=== PATIENT | female | born 1955 | race Caucasian/White ===

== ENCOUNTER → 2018-04-14 | Outpatient (CLI) | payer OTHER ==
--- NOTE | 2018-04-15 11:14 | MM ---
Reason for exam: screening (asymptomatic). Last mammogram was performed 2 years and 9 months ago. History: Patient is postmenopausal. Took hormonal contraceptives for 10 years beginning at age 30. Took estrogen for 2 years. Physical Findings: A clinical breast exam by your physician is recommended on an annual basis and results should be correlated with mammographic findings. MG 3D Screening Mammo W/Cad Bilateral CC and MLO view(s) were taken. Prior study comparison: July 23, 2015, bilateral MG screening mammo w CAD. September 07, 2011, [facility] DIGITAL LEFT BREAST MAMMOGRAM w/CAD. There are scattered fibroglandular densities. There is no discrete abnormality. ASSESSMENT: Negative, BI-RAD 1 RECOMMENDATION: Routine screening mammogram of both breasts in 1 year.
== END ==
LOC: RADMAMWWP 12:00
PROVIDERS: ATTEND Physician Assistant
DX: Z12.31 Encounter for screening mammogram for malignant neoplasm of breast (principal)
CPT/HCPCS: 77063; 77067

== ENCOUNTER → 2019-08-25 | Outpatient (CLI) | payer OTHER ==
--- NOTE | 2019-08-29 08:36 | MM ---
Reason for exam: screening (asymptomatic). Last mammogram was performed 1 year and 4 months ago. History: Patient is postmenopausal. Took hormonal contraceptives for 10 years beginning at age 30. Took estrogen for 2 years. Physical Findings: A clinical breast exam by your physician is recommended on an annual basis and results should be correlated with mammographic findings. MG 3D Screening Mammo W/Cad Bilateral CC, MLO, and XCCL view(s) were taken. Prior study comparison: April 14, 2018, bilateral MG 3d screening mammo w/cad. July 23, 2015, bilateral MG screening mammo w CAD. There are scattered fibroglandular densities. There is no discrete abnormality. ASSESSMENT: Negative, BI-RAD 1 RECOMMENDATION: Routine screening mammogram of both breasts in 1 year.
== END ==
LOC: RADMAMWWP 15:12
PROVIDERS: ATTEND Family Medicine
DX: Z12.31 Encounter for screening mammogram for malignant neoplasm of breast (principal)
CPT/HCPCS: 77063; 77067

== ENCOUNTER 2020-03-18 17:24 | Inpatient (IN) | payer OTHER ==
[2020-03-18] MEDS ORDERED: ASPIRIN 81 MG PO STA (17:34)
[2020-03-18] MEDS ORDERED: HEPARIN SODIUM,PORCINE 5,000 UNIT/ML 1 ML VIAL IV ONE (17:34)
[2020-03-18] MEDS ORDERED: HEPARIN SODIUM,PORCINE 5,000 UNIT/ML 1 ML VIAL IV PRN (17:34)
[2020-03-18] MEDS ORDERED: NALOXONE 0.4 MG/ML 1 ML VIAL IV PRN (17:39)
--- NOTE | 2020-03-18 17:39 | ED ---
General Adult HPI - General Chief complaint: Chest Pain Stated complaint: chest pain Time Seen by Provider: 03/18/20 17:29 Source: patient Mode of arrival: ambulatory Limitations: no limitations - History of Present Illness Initial comments: Dictation was produced using [employer] dictation software. please excuse any grammatical, word or spelling errors. This patient was cared for during a federal and state declared state of emergency secondary to Covid 19 Chief Complaint: 64-year-old female presents with chest pain and epigastric bang n. History of Present Illness: Patient's 64-year-old female she presents with progressing chest pain. Patient states the pain is like a very sharp pressure in her anterior chest. She also complains of nausea and diaphoresis. Patient states she has strong family history of cardiac disease. Both of her brothers have coronary artery disease requiring stents. Her dad had a heart attack at the age of 70. Patient denies any comorbidities. No history of smoking. Denies that the pain radiates to her back. The ROS documented in this emergency department record has been reviewed and confirmed by me. Those systems with pertinent positive or negative responses have been documented in the HPI. All other systems are other negative and/or noncontributory. PHYSICAL EXAM: General Impression: Alert and oriented x3, acute distress secondary to pain, diaphoretic HEENT: Normocephalic atraumatic, extra-ocular movements intact, pupils equal and reactive to light bilaterally, mucous membranes moist. Cardiovascular: Heart regular rate and rhythm Chest: Able to complete full sentences, no retractions, no tachypnea Abdomen: abdomen soft, non-tender, non-distended, no organomegaly Musculoskeletal: Pulses present and equal in all extremities, no peripheral edema Motor: no focal deficits noted Neurological: CN II-XII grossly intact, no focal motor or sensory deficits noted Skin: Intact with no visualized rashes Psych: Normal affect and mood ED course: 64-year-old female with ACS-type symptoms. Vital signs upon arrival shows oxygen saturation of 89% on room air, rest of vital signs within acceptable limits. EKG shows anterior ST segment elevation IN with reciprocal changes in the inferior leads. Code STEMI activated. Discussed patient case with Dr. Akbar. Patient will be dispositioned to the [facility] emergently for cardiac catheterization possible intervention. Patient will be admitted to Dr. Pugh about. EKG interpretation: Ventricular rate 79, normal sinus rhythm,. PRInterval 64, QRS 76, QTC 454. No MO prolongation, no QTC prolongation. ST elevations in anterior precordial leads, high lateral leads with with reciprocal changes in inferior leads. - Related Data Previous Rx's Medication Instructions Recorded predniSONE 60 mg PO DIRECTED #30 tab 11/12/14 Allergies Allergy/AdvReac Type Severity Reaction Status Date / Time No Known Allergies Allergy Verified 03/18/20 17:25 Review of Systems ROS Statement: Those systems with pertinent positive or pertinent negative responses have been documented in the HPI. ROS Other: All systems not noted in ROS Statement are negative. Past Medical History Past Medical History: No Reported History History of Any Multi-Drug Resistant Organisms: None Reported Past Surgical History: No Surgical Hx Reported, Tonsillectomy, Tubal Ligation Past Psychological History: No Psychological Hx Reported Smoking Status: Never smoker Past Alcohol Use History: None Reported Past Drug Use History: None Reported General Exam Limitations: no limitations Course Vital Signs 03/18/20 17:25 Temperature 98.1 F Pulse Rate 78 Respiratory 18 Rate Blood Pressure 152/81 O2 Sat by Pulse 89 L Oximetry Disposition Clinical Impression: STEMI (ST elevation myocardial infarction) Disposition: ADMITTED IP TO THIS HOSP Condition: Critical Referrals: Barb Langley DO [Primary Care Provider] - 1-2 days Decision Time: 17:38
[2020-03-18] MEDS: NITROGLYCERIN SL TABS 0.4 MG TAB SUBLINGUAL PRN ×2 (17:42→17:49)
[2020-03-18] MEDS ORDERED: HEPARIN SOD,PORK IN 0.45% NACL 25,000 UNIT in 0.45% NACL 1 250ML.BAG IV SCH (17:45)
[2020-03-18] MEDS ORDERED: SODIUM CHLORIDE 0.9% 1,000 ML IV SCH ×2 (17:45→19:45)
[2020-03-18] MEDS ORDERED: IV FLUID CONTINUATION 850 ML IV ONE (17:58)
[2020-03-18] MEDS ORDERED: ONDANSETRON 4 MG/2 ML VIAL ONE (18:00)
[2020-03-18] MEDS ORDERED: ONDANSETRON 4 MG/2 ML VIAL IVP ONE (18:00)
[2020-03-18] MEDS ORDERED: SODIUM CHLORIDE 0.9% 500 ML 500 ML IV ONE (18:00)
[2020-03-18 18:04] LABS: ALT 28 U/L (4-34); AST 38 U/L (14-36); African American GFR (CKD) >90 (>60 ml/min/1.73 sqM); Albumin 4.5 g/dL (3.5-5.0); Alkaline Phosphatase 105 U/L (38-126); Anion Gap 17 mmol/L; Blood Urea Nitrogen 14 mg/dL (7-17); Calcium 9.6 mg/dL (8.4-10.2); Carbon Dioxide 16 mmol/L (22-30); Chloride 104 mmol/L (98-107); Glucose 122 mg/dL (74-99); Non-African American GFR(CKD) >90 (>60 ml/min/1.73 sqM); Potassium 3.9 mmol/L (3.5-5.1); Sodium 137 mmol/L (137-145); Total Protein 8.2 g/dL (6.3-8.2)
[2020-03-18] MEDS ORDERED: VERAPAMIL 2.5 MG/ML 2 ML AMP ONE (18:08)
[2020-03-18] MEDS ORDERED: fentaNYL (PF) 50 MCG/ML 2 ML AMP ONE (18:08)
[2020-03-18] MEDS ORDERED: LIDOCAINE 1% INJ 10MG/ML (20 ML MDV) SQ ONE (18:10)
[2020-03-18] MEDS ORDERED: fentaNYL (PF) 50 MCG/ML 2 ML AMP IV ONE (18:10)
[2020-03-18 18:12] LABS: Basophils # (A) 0.1 k/uL (0-0.2); Basophils % (A) 1 %; Eosinophils # (A) 0.2 k/uL (0-0.7); Eosinophils % (A) 2 %; HCT 45.6 % (34.0-46.0); HGB 15.7 gm/dL (11.4-16.0); Lymphocytes # (A) 3.5 k/uL (1.0-4.8); Lymphocytes % (A) 34 %; MCH 31.4 pg (25.0-35.0); MCHC 34.5 g/dL (31.0-37.0); Mean Platelet Volume 7.9; Monocytes # (A) 0.7 k/uL (0-1.0); Monocytes % (A) 7 %; Neutrophils # (A) 5.3 k/uL (1.3-7.7); Neutrophils % (A) 52 %; Platelet Count 314 k/uL (150-450); RBC 5.01 m/uL (3.80-5.40); RDW 12.8 % (11.5-15.5); WBC 10.1 k/uL (3.8-10.6)
[2020-03-18] MEDS ORDERED: VERAPAMIL SYRINGE (5 MG/10 ML) INTRAARTER ONE (18:12)
[2020-03-18 18:13] LABS: INR 0.9 (<1.2); Prothrombin Time 9.7 sec (9.0-12.0)
[2020-03-18 18:14] LABS: Partial Thromboplastin Time 21.8 sec (22.0-30.0)
[2020-03-18] MEDS ORDERED: TICAGRELOR 90 MG TAB ONE (18:17)
[2020-03-18] MEDS ORDERED: TICAGRELOR 90 MG TAB PO ONE (18:19)
[2020-03-18] MEDS ORDERED: BIVALIRUDIN BOLUS 250 MG/50 ML IV ONE (18:20)
[2020-03-18] MEDS ORDERED: BIVALIRUDIN 250 MG in SODIUM CHLORIDE 0.9% 50 ML IV ONE ×2 (18:20→19:10)
--- NOTE | 2020-03-18 18:32 | XR ---
EXAMINATION TYPE: XR chest 1V portable DATE OF EXAM: 03/18/2020 COMPARISON: 11/12/2014 HISTORY: Chest pain TECHNIQUE: FINDINGS: There is no heart failure nor confluent pneumonic infiltrate. Heart and mediastinum appear normal. There is no sign of pleural effusion. Bony thorax is intact. IMPRESSION: No active cardiopulmonary disease. No change.
[2020-03-18] MEDS ORDERED: IOPAMIDOL-370 125ML BTL INJ ONE (18:33)
[2020-03-18] MEDS ORDERED: IOPAMIDOL-370 100ML BTL INJ ONE ×2 (18:55→19:13)
[2020-03-18] MEDS ORDERED: NITROGLYCERIN 1000MCG/10ML SYRINGE INTRACORON ONE (19:09)
[2020-03-18] MEDS ORDERED: MIDAZOLAM 2 MG/2 ML VIAL IV ONE (19:10)
[2020-03-18] MEDS ORDERED: ZOLPIDEM 5 MG TAB PO PRN (19:36)
[2020-03-18] MEDS ORDERED: RX INFO: IV CONTRAST WAS GIVEN 1 EACH MISC MISCELLANE PRN (19:36)
[2020-03-18] MEDS ORDERED: MAG HYDROX/AL HYDROX/SIMETH 30 ML CUP PO PRN (19:36)
[2020-03-18] MEDS ORDERED: NITROGLYCERIN SL TABS 0.4 MG TAB SUBLINGUAL PRN (19:36)
[2020-03-18] MEDS ORDERED: ATROPINE SULFATE 0.1 MG/ML 10ML SYRINGE IV PRN (19:36)
[2020-03-18 19:41] LABS: Glucose,Whole Blood 123 mg/dL (75-99)
[2020-03-18 20:38] LABS: Glucose,Whole Blood 121 mg/dL (75-99)
[2020-03-18] MEDS: METOPROLOL TARTRATE 25 MG TAB PO SCH (22:17)
[2020-03-18] MEDS: ATORVASTATIN 80 MG TAB PO SCH (22:17)
[2020-03-18] MEDS: TICAGRELOR 90 MG TAB PO SCH (22:19)
--- NOTE | 2020-03-18 23:20 | CONS ---
CONSULTATION Mrs. Champagne is a 64-year-old female with no prior documented history of coronary artery disease, family history of premature coronary artery disease, who presented with an episode of chest discomfort that occurred at rest, associated with dizziness. In the emergency room, she was noted to have ST-segment elevation involving I, aVL and the anterior leads with ST depression in the inferior leads consistent with anterior wall myocardial infarction. The patient denies any prior history of coronary artery disease. She is active physically. She has no exertional chest pain. No dizziness. No palpitation. No syncope on a regular basis. No PND, orthopnea or peripheral edema. Her coronary risk factors are negative for hypertension or diabetes. She is a nonsmoker and there is a family history of premature coronary artery disease. MEDICATIONS: None. REVIEW OF SYSTEMS: RESPIRATORY SYSTEM: No recent cough, fever or wheezing. GI SYSTEM: No recent GI bleeding. No peptic ulcer disease. SYSTEM: No dysuria or hematuria. NERVOUS SYSTEM: No stroke or seizure. PHYSICAL EXAMINATION: -jrlm-dln female, alert, nauseated. Vomiting in the cardiac catheterization lab. Heart rate in the 70s. HEAD: Normocephalic. Eyes: Sclerae anicteric. NECK: Good carotid upstroke. No bruit. No jugular venous distention. LUNGS: Clear to auscultation anteriorly. HEART: Regular rate, rhythm S1, S2. No S3, plus S4, no rub. ABDOMEN: Soft, obese, nontender. Positive bowel sounds. No organomegaly. EXTREMITIES: No edema. Intact distal pulses. EKG reveals sinus mechanism, rate of 79, with evidence of anterolateral myocardial infarction. IMPRESSION: Acute anterior wall myocardial infarction. RECOMMENDATION: I have recommended proceeding with coronary angiography to assess her status and guide her treatment. The rationale behind the procedure, its risks and complication were discussed with the patient, who is in full understanding and agreement. Thank you for this consult. Will follow with you. MMODL / IJN: [id number] /
--- NOTE | 2020-03-19 01:04 | CC ---
CARDIAC CATHETERIZATION REPORT Mrs. Champagne is a 64-year-old female with strong family history of premature coronary artery disease who presented with symptoms of chest discomfort of acute onset with evidence of large anterior wall myocardial infarction. In view of that, recommendation was made regarding cardiac catheterization. The procedure as well as the risks and the complications were discussed with the patient who is in full understanding and agreement. PROCEDURE: Patient was brought to excavation laborer. She was draped and prepped in conventional fashion. Using Xylocaine anesthesia and Seldinger technique, a 6-[place] sheath was introduced in the right radial artery. Selective right and left coronary angiography performed using 6-[place] FR3.5 guiding catheter. After obtaining images of the left coronary system and performing angioplasty and stenting, a 5-[place] 3.5 bend right Anabel catheter was used to cannulate the right coronary artery. Images of the right coronary artery were performed. Following that, attempt to cross the aortic valve using a 5-[place] tight pigtail catheter were unsuccessful. Subsequently catheter and sheath were removed. Hemostasis was obtained with deployment of TR band. There was no immediate complication. Patient was returned to room in stable condition. FINDINGS: LEFT MAIN: This is a short size vessel bifurcating left circumflex, left anterior descending artery. Left main artery has no evidence of high-grade stenosis. LEFT ANTERIOR DESCENDING ARTERY: This vessel is totally occluded proximally at the takeoff of the first septal shoe polisher. There is retrograde filling of the LAD. LEFT CIRCUMFLEX: This is a large dominant vessel bifurcating distally PDA and posterolateral segment and branches giving rise to a large obtuse marginal branch. The left circumflex has mild plaque of 10%. The rest of the vessel has no high-grade stenosis. RIGHT CORONARY ARTERY: This is a small nondominant vessel giving rise to an acute marginal branch. The right coronary artery as well as branches have no evidence of obstructive coronary artery disease. LEFT VENTRICULOGRAM: Left ventriculogram was not performed. CONCLUSION: 1. Heavily calcified proximal left anterior descending artery with total occlusion. 2. Mild disease in the left circumflex. 3. Dominant left system. RECOMMENDATION: In view of finding anatomy, I recommend proceeding with angioplasty and stenting of the LAD. The procedure as well as the risks and the complications were discussed with the patient who is in full understanding and agreement. MMODL / IJN: [id number] /
--- NOTE | 2020-03-19 01:13 | PTCA ---
PERCUTANEOUSTRANS CORORONARY ANGIOGRAPHY Mrs. Champagne is a 64-year-old female with a strong family history of premature coronary artery disease who presents with an acute anterior myocardial infarction, underwent cardiac catheterization, was found to have totally occluded left anterior descending artery proximal. In view of that, recommendation was made regarding coronary angioplasty and stenting. The procedures as well as risks and the complications were discussed with the patient who is in full understanding and agreement. PROCEDURE: A 0.014 balanced medium weight J-wire was advanced across the lesion positioned distally. Subsequently, 2.5 x 12 mm Trek balloon was advanced and multiple inflations at 10 atmospheres were done. Following that, the balloon was removed and a 2.75 x 12 mm Trek balloon was advanced and multiple inflations were done. There was an area that was heavily calcified that did not open completely at that time. A 2.5 x 10 AngioSculpt balloon was advanced and one inflation 8 atmospheres was done. Following that, the balloon was removed and a 2.75 x 15 mm NC Trek balloon was advanced and inflation at 10 atmospheres was done. The lesion opened up, but not completely. At that point, a 3.0 x 23 mm Xience Lavonne stent was deployed postdilated at 16 atmospheres. Following that, the balloon was removed and a 3.0 x 15 mm NC Trek balloon was advanced and inflation up to 16 atmospheres was done. With inability to totally open up the lesion that balloon was removed and a 3.5 x 15 mm NC Trek balloon was advanced and at a pressure of 20 atmospheres, the lesion opened up completely. At that point the balloon was removed and a 2.75 x 12 mm Xience Lavonne stent was deployed distal to the first one and postdilated at 16 atmospheres. Following that, the balloon was removed and a 3.5 x 12 mm Xience Lavonne stent was deployed proximal to the first one postdilated to 16 atmospheres. Following that, a 3.75 x 15 mm NC Emerge balloon was advanced and inflation in the stented segment was done at 14 atmospheres. After the last inflation, after appropriate wait, the balloon and the guidewire were withdrawn back in the guiding catheter. Images were obtained, repeated. Those images reveal stable successful stenting. At that point, the guiding catheter, the balloon and the guidewire were removed. Images of the right coronary artery were performed. Following that, catheter and sheath were removed. Hemostasis was obtained with deployment of a TR band. There was no immediate complication. Patient was returned to room in stable condition. Of note, the patient received Angiomax per protocol as well as oral loading dose of Brilinta. RESULTS: Successful stenting of a heavily calcified totally occluded proximal LAD with reduction of stenosis from 100% to 0%. RECOMMENDATION: Patient will be continued on aspirin, Brilinta, beta blockers, JATIN inhibitor and statin. The importance of dual antiplatelet treatment were discussed with the patient and her family and they are in full understanding and agreement. Duration of procedure is 69 minutes. MMODL / IJN: [id number] /
[2020-03-19 05:25] LABS: African American GFR (CKD) >90 (>60 ml/min/1.73 sqM); Anion Gap 8 mmol/L; Blood Urea Nitrogen 12 mg/dL (7-17); Calcium 8.5 mg/dL (8.4-10.2); Carbon Dioxide 21 mmol/L (22-30); Chloride 107 mmol/L (98-107); Cholesterol 204 mg/dL (<200); Glucose 127 mg/dL (74-99); HDL Cholesterol 38 mg/dL (40-60); LDL Cholesterol,Calculated 144 mg/dL (0-99); Non-African American GFR(CKD) >90 (>60 ml/min/1.73 sqM); Potassium 4.6 mmol/L (3.5-5.1); Sodium 136 mmol/L (137-145); Triglycerides 109 mg/dL (<150)
[2020-03-19] MEDS: SPIRONOLACTONE 25 MG TAB PO SCH (09:36)
[2020-03-19] MEDS: LISINOPRIL 5 MG TAB PO SCH (09:37)
[2020-03-19] MEDS: TICAGRELOR 90 MG TAB PO SCH (09:37)
[2020-03-19] MEDS: METOPROLOL TARTRATE 25 MG TAB PO SCH ×2 (09:37→20:25)
[2020-03-19] MEDS: ASPIRIN 81 MG PO SCH (09:37)
[2020-03-19 11:04] VITALS: BMI 41.3
--- NOTE | 2020-03-19 11:59 | PN ---
PROGRESS NOTE Rianna is a 64-year-old lady who is admitted to hospital with acute anterolateral myocardial infarction. Underwent emergent cardiac catheterization and angioplasty of a totally occluded LAD. There was mild disease on the circumflex coronary artery. This morning patient is doing well and denies any chest pain or difficulty in breathing. On exam, comfortable at rest. Vital signs are stable. There is no jugular venous distention. Chest exam reveals good air entry bilaterally. Heart exam reveals first and second heart sounds. No gallop. No murmur. Abdomen is soft. Exam of extremities did not reveal any edema. Peripheral pulses are felt. Patient is currently on aspirin, Lipitor 80 daily, Zestril 5 daily, Lopressor 25 b.i.d., Aldactone, Brilinta. ASSESSMENT: Acute anterior wall myocardial infarction status post catheterization and angioplasty. PLAN: Patient is doing well. We will obtain an echocardiogram to evaluate the LV function. She can be transferred out of ICU. BETTINA / AYLIN: [id number] /
[2020-03-19] MEDS: ATORVASTATIN 80 MG TAB PO SCH (20:25)
--- NOTE | 2020-03-19 23:13 | P.HPIM ---
History of Present Illness H&P Date: 03/19/20 Chief Complaint: chest pain Rianna Champagne is a 64 yo F with no PMH but with strong family history of CAD who presented to the ED complaining of acute onset chest pain. She states she was resting in a chair when she felt like a knife was going through her chest. She also had some shortness of breath at that time. On arrival she was hypertensive with SpO2 89%, EKG showed STEMI and pt was taken to the dental laboratory technician apprentice. She was found to have 100% blockage of LAD which was stented successfully. She was transferred to ICU, today reports almost complete resolution of her chest pain and is feeling a bit sore, tolerating cardiac meds. Review of Systems All systems: negative Constitutional: Denies chills, Denies fever Eyes: denies blurred vision, denies pain Ears, nose, mouth and throat: Denies headache, Denies sore throat Cardiovascular: Reports chest pain, Reports shortness of breath Respiratory: Denies cough Gastrointestinal: Denies abdominal pain, Denies diarrhea, Denies nausea, Denies vomiting Genitourinary: Denies dysuria, Denies hematuria Musculoskeletal: Denies myalgias Integumentary: Denies pruritus, Denies rash Neurological: Denies numbness, Denies weakness Psychiatric: Denies anxiety, Denies depression Endocrine: Denies fatigue, Denies weight change Past Medical History Past Medical History: No Reported History History of Any Multi-Drug Resistant Organisms: None Reported Past Surgical History: Section, Tonsillectomy, Tubal Ligation Past Anesthesia/Blood Transfusion Reactions: No Reported Reaction Past Psychological History: No Psychological Hx Reported Smoking Status: Never smoker Past Alcohol Use History: None Reported Past Drug Use History: None Reported - Past Family History Father Family Medical History: Coronary Artery Disease (CAD), Myocardial Infarction ([place]) Additional Family Medical History / Comment(s): Father from [place] at age 52 Mother Family Medical History: Cancer Additional Family Medical History / Comment(s): Mother passed from cancer at age 65 Medications and Allergies Home Medications Medication Instructions Recorded Confirmed Type No Known Home Medications 03/18/20 03/18/20 History Allergies Allergy/AdvReac Type Severity Reaction Status Date / Time No Known Allergies Allergy Verified 03/18/20 21:23 Physical Exam Vitals: Vital Signs Temp Pulse Pulse Resp BP BP Pulse Ox 03/19/20 20:09 98.8 F 84 18 118/66 98 03/19/20 17:00 73 26 H 138/72 94 L 03/19/20 16:00 98 F 76 15 127/84 03/19/20 15:00 75 19 125/87 03/19/20 14:00 77 28 H 122/72 03/19/20 13:00 72 12 121/73 03/19/20 12:00 68 11 L 124/78 03/19/20 11:00 75 8 L 96 03/19/20 10:00 82 13 143/84 03/19/20 09:00 78 18 132/87 94 L 03/19/20 08:00 97.7 F 76 24 113/78 94 L 03/19/20 07:00 77 16 136/82 03/19/20 06:00 76 30 H 132/79 96 03/19/20 05:00 76 25 H 141/82 97 03/19/20 04:00 98.1 F 79 14 144/85 96 03/19/20 03:00 80 10 L 144/87 97 03/19/20 02:00 85 11 L 145/81 97 03/19/20 01:30 80 27 H 146/82 97 03/19/20 01:00 80 28 H 136/80 96 03/19/20 00:30 83 35 H 146/87 86 L 03/19/20 00:00 98.0 F 86 15 154/82 98 03/18/20 23:30 82 7 L 145/91 Intake and Output 03/19/20 03/19/20 03/20/20 14:59 22:59 06:59 Intake Total 120 600 Output Total 1400 Balance -1280 600 Intake: IV 120 0 .9NS 120 0 Oral 600 Output: Urine 1400 Other: Voiding Method Bedside Commode Toilet # Voids 1 1 # Bowel Movements 1 1 Weight 105.8 kg General: well nourished, well developed, NAD. Vitals reviewed Eyes: PERRL, EOMI, conjunctiva normal HENT: normocephalic, mucus membranes moist Neck: supple, no JVD Lungs: normal respiratory effort, no wheezes or rales CV: Regular rate and rhythm, no murmur. Peripheral pulses 2+ Abdomen: soft, nondistended, no organomegaly Lymph: no cervical or axillary LAD Skin: warm and dry. Neuro: A&Ox3, normal mood and affect Results CBC & Chem 7: 03/18/20 17:44 03/19/20 04:51 Labs: Abnormal Lab Results - Last 24 Hours (Table) 03/18/20 03/19/20 03/19/20 Range/Units 23:55 04:51 04:51 Sodium 136 L (137-145) mmol/L Carbon Dioxide 21 L (22-30) mmol/L Glucose 127 H (74-99) mg/dL Troponin I 103.000 H* 105.000 H* (0.000-0.034) ng/mL Cholesterol 204 H (<200) mg/dL LDL Cholesterol, Calc 144 H (0-99) mg/dL HDL Cholesterol 38 L (40-60) mg/dL Thrombosis Risk Factor Assmnt - Choose All That Apply Each Factor Represents 1 point: Acute [place], Obesity (BMI >25) Each Risk Factor Represents 2 Points: Age 61-74 years Thrombosis Risk Factor Assessment Total Risk Factor Score: 4 Thrombosis Risk Factor Assessment Level: Moderate Risk Assessment and Plan (1) STEMI (ST elevation myocardial infarction) Current Visit: Yes Status: Acute Code(s): I21.3 - ST ELEVATION (STEMI) MYOCARDIAL INFARCTION OF [facility] SITE SNOMED Code(s): 99876165 Plan: 1. Acute coronary syndrome. Now s/p successful stenting and pt doing well. Pt started on lipitor, ASA, plavix, lopressor, aldactone 2. CAD 3. HTN. Start lisinopril
[2020-03-20] MEDS: SPIRONOLACTONE 25 MG TAB PO SCH (08:29)
[2020-03-20] MEDS: ASPIRIN 81 MG PO SCH (08:29)
[2020-03-20] MEDS: METOPROLOL TARTRATE 25 MG TAB PO SCH (08:29)
[2020-03-20] MEDS: LISINOPRIL 5 MG TAB PO SCH (08:29)
[2020-03-20] MEDS: CLOPIDOGREL 75 MG TAB PO SCH (08:29)
[2020-03-20] MEDS: METOPROLOL TARTRATE 50 MG TAB PO SCH ×2 (10:49→21:00)
--- NOTE | 2020-03-20 11:43 | P.PN ---
Subjective Progress Note Date: 03/20/20 This is a pleasant 64-year-old female who presented to the hospital with an acute anterior wall myocardial infarction, she underwent antiplastic and stenting of the LAD. She was seen and examined on the cardiac unit this morning, doing well, denies any chest pain or difficulty in breathing. Blood pressure 112/60 with a heart rate 80-90, afebrile. No lab data from this morning. Echocardiogram with Doppler study has been performed but is yet pending. Objective - Vital Signs Vital signs: Vital Signs Temp 98.5 F 03/20/20 08:29 Pulse 95 03/20/20 08:29 Resp 18 03/20/20 08:29 BP 112/68 03/20/20 08:29 Pulse Ox 99 03/20/20 08:29 Intake & Output 03/19/20 03/20/20 03/20/20 18:59 06:59 18:59 Intake Total 720 240 Output Total 1400 Balance -680 240 Weight 105.8 kg 96.6 kg Intake: IV 120 .9NS 120 Oral 600 240 Output: Urine 1400 Other: Voiding Method Bedside Commode Toilet Toilet # Voids 1 1 # Bowel Movements 1 - Exam PHYSICAL EXAMINATION: GENERAL: 64-year-old female in no acute distress at the time of my examination HEENT: Head is atraumatic, normocephalic. Pupils equal, round. Sclera anicteric. Conjunctiva are clear. Mucous membranes of the mouth are moist. Neck is supple. There is no elevated jugular venous pressure. No carotid bruit is heard. HEART EXAMINATION: Heart S1, S2 normal. No murmur or gallop heard. CHEST EXAMINATION: Lungs are clear to auscultation and precussion. No chest wall tenderness is noted on palpation or with deep breathing. ABDOMEN: Soft, nontender. Bowel sounds are heard. No organomegaly noted. EXTREMITIES: 2+ peripheral pulses with no evidence of peripheral edema and no calf tenderness noted. Right radial site clean and dry, good distal pulse. NEUROLOGIC patient is awake, alert and oriented 3 . . - Labs CBC & Chem 7: 03/18/20 17:44 03/19/20 04:51 Assessment and Plan Plan: Assessment and plan #[address] elevation IN status post angioplasty and stenting of the LAD #2 family history of premature coronary artery disease #3 hyperlipidemia Plan We will review the echocardiogram with Doppler study, continue current medicati ons including dual antiplatelet therapy. Plan for possible discharge home in 24 hours if stable. DNP note has been reviewed, I agree with a documented findings and plan of care. Patient was seen and examined.
--- NOTE | 2020-03-20 14:10 | P.PN ---
Subjective Progress Note Date: 03/20/20 Rianna Champagne is a 64 yo F with no PMH but with strong family history of CAD who presented to the ED complaining of acute onset chest pain. She states she was resting in a chair when she felt like a knife was going through her chest. She also had some shortness of breath at that time. On arrival she was hypertensive with SpO2 89%, EKG showed STEMI and pt was taken to the [facility] programmer. She was found to have 100% blockage of LAD which was stented successfully. She was transferred to ICU, today reports almost complete resolution of her chest pain and is feeling a bit sore, tolerating cardiac meds. 03/20/2020 significant clinical improvement. Ambulating in the room, tolerating exertion well. Denies chest pain, palpitations or shortness of breath. Denies lightheadedness, dizziness or focal deficits.VSS. Objective - Vital Signs Vital signs: Vital Signs Temp 98.5 F 03/20/20 08:29 Pulse 95 03/20/20 08:29 Resp 18 03/20/20 08:29 BP 112/68 03/20/20 08:29 Pulse Ox 99 03/20/20 08:29 Intake & Output 03/19/20 03/20/20 03/20/20 18:59 06:59 18:59 Intake Total 720 240 Output Total 1400 Balance -680 240 Weight 105.8 kg 96.6 kg Intake: IV 120 .9NS 120 Oral 600 240 Output: Urine 1400 Other: Voiding Method Bedside Commode Toilet Toilet # Voids 1 1 # Bowel Movements 1 - Exam General: Sitting up in bed, NAD. Vitals reviewed Eyes: PERRL, EOMI, conjunctiva normal HENT: normocephalic, mucus membranes moist Neck: supple, no JVD Lungs: normal respiratory effort, no wheezes or rales CV: Regular rate and rhythm, no murmur. Peripheral pulses 2+ Abdomen: soft, nondistended, no organomegaly Lymph: no cervical or axillary LAD Skin: warm and dry. Neuro: A&Ox3, normal mood and affect - Labs CBC & Chem 7: 03/18/20 17:44 03/19/20 04:51 Assessment and Plan Assessment: (1) STEMI (ST elevation myocardial infarction), anterior wall Current Visit: Yes Status: Acute Code(s): I21.3 - ST ELEVATION (STEMI) MYOCARDIAL INFARCTION OF [facility] SITE SNOMED Code(s): 45958341 (2) CAD (3) hypertension (4) hyperlipidemia Plan: Continue on current medication regime ,monitoring and symptomatic treatment. Follow-up echo pending. Increase ambulation as tolerated. Discharge planning in progress for tomorrow pending cardiology clearance. The impression and plan of care has been dictated as directed. : I performed a history and examination of this patient, discussed the same with the dictator. I agree with the dictator's note ,documented as a scribe. Any additional findings or plans will be noted.
[2020-03-20] MEDS: ATORVASTATIN 80 MG TAB PO SCH (21:00)
[2020-03-21 06:05] VITALS: PULSE 80
--- NOTE | 2020-03-21 08:28 | ECHOF ---
Referral Reason:mi MEASUREMENTS -------- HEIGHT: 160.0 cm WEIGHT: 105.7 kg BP: RVIDd: 1.7 cm (< 3.3) IVSd: 1.2 cm (0.6 - 1.1) LVIDd: 4.6 cm (3.9 - 5.3) LVPWd: 1.2 cm (0.6 - 1.1) IVSs: 1.5 cm LVIDs: 3.1 cm LVPWs: 1.5 cm Ao Diam: 3.0 cm (2.0 - 3.7) AV Cusp: 2.1 cm (1.5 - 2.6) LA Diam: 3.1 cm (2.7 - 3.8) MV EXCURSION: 15.271 mm (> 18.000) MV EF SLOPE: 69 mm/s (70 - 150) EPSS: 0.9 cm MV E Edvin: 0.90 m/s MV DecT: 200 ms MV A Edvin: 0.89 m/s MV E/A Ratio: 1.01 RAP: 5.00 mmHg RVSP: 10.90 mmHg FINDINGS -------- Sinus rhythm. This was a technically difficult study with suboptimal views. The left ventricular size is normal. There is mild concentric left ventricular hypertrophy. Overa ll left ventricular systolic function is moderately impaired with, an EF between 35 - 40 %. Mid ant erior LV wall motion is hypokinetic. Mid anteroseptal LV wall motion is hypokinetic. Apical sep ellen LV wall motion is hypokinetic. The right ventricle is normal in size. The left atrial size is normal. The right atrial size is normal. 5.0mg of Lumason was utilized for enhancement of images IAS not well Visualized. The aortic valve is trileaflet and appears structurally normal. The mitral valve is normal. There is trace mitral regurgitation. The tricuspid valve appears structurally normal. Trace tricuspid regurgitation present. Right araseli tricular systolic pressure is normal at < 35 mmHg. There is no pulmonic regurgitation present. The aortic root size is normal. Normal inferior vena cava with normal inspiratory collapse consistent with estimated right atrial pre ssure of 5 mmHg. There is no pericardial effusion. CONCLUSIONS -------- 1. Sinus rhythm. 2. This was a technically difficult study with suboptimal views. 3. The left ventricular size is normal. 4. There is mild concentric left ventricular hypertrophy. 5. Overall left ventricular systolic function is moderately impaired with, an EF between 35 - 40 %. 6. Mid anterior LV wall motion is hypokinetic. 7. Mid anteroseptal LV wall motion is hypokinetic. 8. Apical septum LV wall motion is hypokinetic. 9. The right ventricle is normal in size. 10. The left atrial size is normal. 11. The right atrial size is normal. 12. 5.0mg of Lumason was utilized for enhancement of images 13. IAS not well Visualized. 14. The aortic valve is trileaflet and appears structurally normal. 15. The mitral valve is normal. 16. There is trace mitral regurgitation. 17. The tricuspid valve appears structurally normal. 18. Trace tricuspid regurgitation present. 19. Right ventricular systolic pressure is normal at < 35 mmHg. 20. There is no pulmonic regurgitation present. 21. The aortic root size is normal. 22. Normal inferior vena cava with normal inspiratory collapse consistent with estimated right atrial pressure of 5 mmHg. 23. There is no pericardial effusion. DEPUTY CONTROLLER: Adrianna Perdomo RDCS
[2020-03-21 09:55] VITALS: BP 107/62; RESP 17; TEMP 98.3
--- NOTE | 2020-03-21 09:59 | P.PN ---
Subjective Progress Note Date: 03/21/20 This is a pleasant 64-year-old female who presented to the hospital with an acute anterior wall myocardial infarction, she underwent antiplastic and stenting of the LAD. She was seen and examined on the cardiac unit this morning, doing well, denies any chest pain or difficulty in breathing. Blood pressure 112/60 with a heart rate 80-90, afebrile. No lab data from this morning. Echocardiogram with Doppler study has been performed but is yet pending. 03/21/2020 Patient seen and examined this morning, denies any chest pain or difficulty in breathing. She's been up ambulating without any difficulty. Echocardiogram with Doppler study was performed which revealed an ejection fraction of 35-40%, mid anterior and mid anterior septal wall as well as apical septal wall hypokinesia noted. Blood pressure 108/60 with a heart rate in the 80s, 97% on room air. Objective - Vital Signs Vital signs: Vital Signs Temp 98.3 F 03/21/20 09:55 Pulse 80 03/21/20 09:55 Resp 17 03/21/20 09:55 BP 107/62 03/21/20 09:55 Pulse Ox 88 L 03/21/20 09:55 Intake & Output 03/20/20 03/21/20 03/21/20 18:59 06:59 18:59 Intake Total 720 240 Balance 720 240 Weight 96.7 kg Intake: Oral 720 240 Other: Voiding Method Toilet Toilet # Voids 2 1 - Exam PHYSICAL EXAMINATION: GENERAL: 64-year-old female in no acute distress at the time of my examination HEENT: Head is atraumatic, normocephalic. Pupils equal, round. Sclera anicteric. Conjunctiva are clear. Mucous membranes of the mouth are moist. Neck is supple. There is no elevated jugular venous pressure. No carotid bruit is heard. HEART EXAMINATION: Heart S1, S2 normal. No murmur or gallop heard. CHEST EXAMINATION: Lungs are clear to auscultation and precussion. No chest wall tenderness is noted on palpation or with deep breathing. ABDOMEN: Soft, nontender. Bowel sounds are heard. No organomegaly noted. EXTREMITIES: 2+ peripheral pulses with no evidence of peripheral edema and no calf tenderness noted. Right radial site clean and dry, good distal pulse. NEUROLOGIC patient is awake, alert and oriented 3 . . - Labs CBC & Chem 7: 03/18/20 17:44 03/19/20 04:51 Assessment and Plan Plan: Assessment and plan #[address] elevation AL status post angioplasty and stenting of the LAD #2 family history of premature coronary artery disease #3 hyperlipidemia Plan Echocardiogram with Doppler study revealed an ejection fraction of 35-40%. From cardiology's perspective, patient may be able to be discharged home today. We will make her a follow-up appointment in the office to see Dr. Akbar post discharge. Discharge medications include a baby aspirin daily, Lipitor 80 mg daily, Plavix 75 mg daily, Zestril 5 mg daily, metoprolol 50 mg one tablet by mouth twice a day, Aldactone 25 mg daily and sublingual nitroglycerin as needed for chest pain. DNP note has been reviewed, I agree with a documented findings and plan of care. Patient was seen and examined.
[2020-03-21] MEDS: SPIRONOLACTONE 25 MG TAB PO SCH (10:02)
[2020-03-21] MEDS: ASPIRIN 81 MG PO SCH (10:02)
[2020-03-21] MEDS: LISINOPRIL 5 MG TAB PO SCH (10:02)
[2020-03-21] MEDS: METOPROLOL TARTRATE 50 MG TAB PO SCH (10:02)
[2020-03-21] MEDS: CLOPIDOGREL 75 MG TAB PO SCH (10:02)
--- NOTE | 2020-03-21 11:37 | P.DS ---
Providers Date of admission: 03/18/20 17:39 Expected date of discharge: 03/21/20 Attending physician: Jimmie Cisneros MD Consults: 03/18/20 17:34 Consult Physician Stat Consulting Provider: Tavo Wright Consult Reason/Comments: STEMI ACTIVATION COMPLETE Do you want consulting provider notified?: Yes 03/18/20 19:36 Consult Physician Routine Consulting Provider: Tavo Wright Consult Reason/Comments: Post Interventional patient Do you want consulting provider notified?: Already Contacted Primary care physician: Barb Langley Hospital Course: Final Diagnoses: (1) STEMI (ST elevation myocardial infarction), anterior wall, EF 35-40% Current Visit: Yes Status: Acute Code(s): I21.3 - ST ELEVATION (STEMI) MYOCARDIAL INFARCTION OF [facility] SITE SNOMED Code(s): 68680045 (2) CAD (3) hypertension (4) hyperlipidemia Hospital course:Rianna Champagne is a 64 yo F with no PMH but with strong family history of CAD who presented to the ED complaining of acute onset chest pain. She states she was resting in a chair when she felt like a knife was going through her chest. She also had some shortness of breath at that time. On arrival she was hypertensive with SpO2 89%, EKG showed STEMI and pt was taken to the [facility] lab[facility]. She was found to have 100% blockage of LAD which was stented successfully. She was transferred to ICU, today reports almost complete resolution of her chest pain and is feeling a bit sore, tolerating cardiac meds. 03/20/2020 significant clinical improvement. Ambulating in the room, tolerating exertion well. Denies chest pain, palpitations or shortness of breath. Denies lightheadedness, dizziness or focal deficits.VSS. Echo reported moderately impaired LV function, EF 35-40%, Significant clinical improvement. Cleared by cardiology for discharge. Patient will be discharged home in a stable condition with guarded prognosis. The impression and plan of care has been dictated as directed. : I performed a history and examination of this patient, discussed the same with the dictator. I agree with the dictator's note ,documented as a scribe. Any additional findings or plans will be noted. Patient Condition at Discharge: Stable Plan - Discharge Summary New Discharge Prescriptions: New Nitroglycerin Sl Tabs [Nitrostat] 0.4 mg SUBLINGUAL Q5M PRN #100 tab PRN Reason: Chest Pain Spironolactone [Aldactone] 25 mg PO DAILY #30 tab Aspirin 81 mg PO DAILY #30 chew Atorvastatin [Lipitor] 80 mg PO HS #30 tab Metoprolol Tartrate [Lopressor] 50 mg PO BID #60 tab Clopidogrel [Plavix] 75 mg PO DAILY #30 tab Lisinopril [Zestril] 5 mg PO DAILY #30 tab Discharge Medication List Aspirin 81 mg PO DAILY #30 chew 03/21/20 [Rx] Atorvastatin [Lipitor] 80 mg PO HS #30 tab 03/21/20 [Rx] Clopidogrel [Plavix] 75 mg PO DAILY #30 tab 03/21/20 [Rx] Lisinopril [Zestril] 5 mg PO DAILY #30 tab 03/21/20 [Rx] Metoprolol Tartrate [Lopressor] 50 mg PO BID #60 tab 03/21/20 [Rx] Nitroglycerin Sl Tabs [Nitrostat] 0.4 mg SUBLINGUAL Q5M PRN #100 tab 03/21/20 [Rx] Spironolactone [Aldactone] 25 mg PO DAILY #30 tab 03/21/20 [Rx] Follow up Appointment(s)/Referral(s): Julio Akbar MD [STAFF PHYSICIAN] - 1 Week (Office will call with appointment. ) Jimmie Cisneros MD [STAFF PHYSICIAN] - 03/25/20 4:15 pm ([facility] ) Ambulatory/Diagnostic Orders: Complete Blood Count w/diff [LAB.AMB] Time Frame: 3 Days, Location: None Selected Patient Instructions/Handouts: *Surgery [facility] - After Heart Catheterization - Paving Stone Installer Instructions, Heart Attack (DC), Heart Healthy Diet (ED) Activity/Diet/Wound Care/Special Instructions: .
== END 2020-03-21 13:12 | disposition home or self-care (01) | DRG 247 ==
LOC: EC 17:24 → 2SICU 17:39 → 3SCARD 03-19 17:53
PROVIDERS: ADMIT Family Medicine; ATTEND Family Medicine
PROC: B2111ZZ Fluoroscopy of Multiple Coronary Arteries using Low Osmolar Contrast (ICD-10-PCS; 2020-03-18)
PROC: 027036Z Dilation of Coronary Artery, One Artery with Three Drug-eluting Intraluminal Devices, Percutaneous Approach (ICD-10-PCS; principal; 2020-03-18 17:44)
PROC: 4A023N7 Measurement of Cardiac Sampling and Pressure, Left Heart, Percutaneous Approach (ICD-10-PCS; 2020-03-18 17:44)
DX: I21.09 ST elevation (STEMI) myocardial infarction involving other coronary artery of anterior wall (principal); Z11.59 Encounter for screening for other viral diseases; E66.9 Obesity, unspecified; I10 Essential (primary) hypertension; I25.10 Atherosclerotic heart disease of native coronary artery without angina pectoris; E78.5 Hyperlipidemia, unspecified; Z68.37 Body mass index [BMI] 37.0-37.9, adult; Z82.49 Family history of ischemic heart disease and other diseases of the circulatory system; Z98.890 Other specified postprocedural states; Z98.51 Tubal ligation status
CPT/HCPCS: 71045; 80048; 80053; 80061; 84484; 85025; 85347; 85610; 85730; 93005; 93306; 93454; 96374; 99285

== ENCOUNTER → 2020-11-18 | Outpatient (CLI) | payer MEDICARE ==
[2020-11-18 15:24] LABS: African American GFR (CKD) 89.7 (60.0-200.0); Albumin 4.3 g/dL (3.80-4.90); Albumin/Globulin Ratio 1.87 (1.60-3.17); Anion Gap 4.4 mmol/L (4.00-12.00); Calcium 9.5 mg/dL (8.7-10.3); Carbon Dioxide 28.6 mmol/L (21.6-31.8); Chol/HDL Ratio 3.74; Globulin 2.3 g/dL (1.6-3.3); LDL Cholesterol,Calculated 83.4 mg/dL (0.0-131.0); Non-African American GFR(CKD) 77.4 (60.0-200.0); Potassium 4.5 mmol/L (3.5-5.5); Total Bilirubin 0.6 mg/dL (0.2-1.2); Total Protein 6.6 g/dL (6.2-8.2); VLDL Calculation 23.6 mg/dL (5.00-40.00)
== END | disposition home or self-care (01) ==
LOC: LABWHC1 10:25
PROVIDERS: ATTEND Internal Medicine Interventional Cardiology
DX: E78.2 Mixed hyperlipidemia (principal)
CPT/HCPCS: 36415; 80053; 80061

== ENCOUNTER → 2021-04-22 | Outpatient (CLI) | payer MEDICARE ==
--- NOTE | 2021-04-24 11:57 | MM ---
Reason for exam: screening (asymptomatic). Last mammogram was performed 1 year and 8 months ago. History: Patient is postmenopausal. Took hormonal contraceptives for 10 years beginning at age 30. Took estrogen for 2 years. Physical Findings: A clinical breast exam by your physician is recommended on an annual basis and results should be correlated with mammographic findings. MG 3D Screening Mammo W/Cad Bilateral CC and MLO view(s) were taken. Prior study comparison: August 25, 2019, bilateral MG 3d screening mammo w/cad. April 14, 2018, bilateral MG 3d screening mammo w/cad. The breast tissue is almost entirely fat. There is no discrete abnormality. No significant changes when compared with prior studies. ASSESSMENT: Negative, BI-RAD 1 RECOMMENDATION: Routine screening mammogram of both breasts in 1 year.
== END | disposition home or self-care (01) ==
LOC: RADMAMWWP 14:59
PROVIDERS: ATTEND Family Medicine
DX: Z12.31 Encounter for screening mammogram for malignant neoplasm of breast (principal)
CPT/HCPCS: 77063; 77067

== ENCOUNTER → 2021-06-09 | Outpatient (CLI) | payer MEDICARE ==
[2021-06-09 17:05] LABS: African American GFR (CKD) 89.7 (60.0-200.0); Albumin 3.9 g/dL (3.80-4.90); Albumin/Globulin Ratio 1.56 (1.60-3.17); Anion Gap 6.4 mmol/L (4.00-12.00); BUN/Creat Ratio 16.25 Ratio (12.00-20.00); Calcium 9.2 mg/dL (8.7-10.3); Carbon Dioxide 26.6 mmol/L (21.6-31.8); Chol/HDL Ratio 3.61; Globulin 2.5 g/dL (1.6-3.3); LDL Cholesterol,Calculated 69.4 mg/dL (0.0-131.0); Non-African American GFR(CKD) 77.4 (60.0-200.0); Total Bilirubin 0.7 mg/dL (0.2-1.2); Total Protein 6.4 g/dL (6.2-8.2); VLDL Calculation 29.6 mg/dL (5.00-40.00)
== END | disposition home or self-care (01) ==
LOC: LABWHC1 10:06
PROVIDERS: ATTEND Internal Medicine Interventional Cardiology
DX: E78.2 Mixed hyperlipidemia (principal)
CPT/HCPCS: 36415; 80053; 80061

== ENCOUNTER → 2021-12-18 | Outpatient (CLI) | payer MEDICARE ==
[2021-12-18 15:01] LABS: ALT 37 U/L (8-44); AST 27 U/L (13-35); Albumin 4.2 g/dL (3.8-4.9); Albumin/Globulin Ratio 1.62 (1.60-3.17); Alkaline Phosphatase 131 U/L (41-126); BUN/Creat Ratio 23.63 Ratio (12.00-20.00); Blood Urea Nitrogen 18.9 mg/dL (9.0-27.0); Calcium 9.4 mg/dL (8.7-10.3); Carbon Dioxide 23.1 mmol/L (20.0-27.5); Chloride 103 mmol/L (96-109); Chol/HDL Ratio 3.25 Ratio; Globulin 2.6 g/dL (1.6-3.3); Glucose 88 mg/dL (70-110); LDL Cholesterol,Calculated 79.7 mg/dL (0.0-131.0); Non-African American GFR(CKD) 76.8 (60.0-200.0); Potassium 4.2 mmol/L (3.5-5.5); Sodium 137 mmol/L (135-145); Total Protein 6.8 g/dL (6.2-8.2)
== END | disposition home or self-care (01) ==
LOC: LABWHC1 09:02
PROVIDERS: ATTEND Nurse Practitioner Adult Health
DX: I10 Essential (primary) hypertension (principal); E78.2 Mixed hyperlipidemia
CPT/HCPCS: 36415; 80053; 80061

== ENCOUNTER → 2022-04-23 | Outpatient (CLI) | payer MEDICARE ==
--- NOTE | 2022-04-24 10:17 | MM ---
Reason for Exam: Screening (asymptomatic). Last screening mammogram was performed 12 month(s) ago. Patient History: Menarche at age 13. First Full-Term at age 28. Postmenopausal. Patient used Estrogen for 2 years. Hormonal Contraceptives, starting at age 30 for 10 years. Risk Values: Ursula 5 year model risk: 1.9%. NCI Lifetime model risk: 6.7%. Prior Study Comparison: 04/14/2018 Bilateral Screening Mammogram, [facility]. 08/25/2019 Bilateral Screening Mammogram, [facility]. 04/22/2021 Bilateral Screening Mammogram, [facility]. Tissue Density: There are scattered fibroglandular densities. Findings: Analyzed By CAD. Pattern appears stable. No suspicious groups of microcalcifications, spiculated or lobular masses, architectural distortion or other secondary signs of malignancy are mammographically apparent. Overall Assessment: Benign, BI-RAD 2 Management: Screening Mammogram of both breasts in 1 year. A negative mammogram report should not preclude additional follow up of suspicious palpable abnormalities. Patient should continue monthly self breast exam. A clinical breast exam by your physician is recommended on an annual basis and results should be correlated with mammographic findings. Electronically signed and approved by: Jorje Cleveland D.O. Radiologis
== END | disposition home or self-care (01) ==
LOC: RADMAMWWP 11:23
PROVIDERS: ATTEND Family Medicine
DX: Z12.31 Encounter for screening mammogram for malignant neoplasm of breast (principal)
CPT/HCPCS: 77063; 77067

== ENCOUNTER → 2022-06-15 | Outpatient (CLI) | payer MEDICARE ==
[2022-06-15 14:58] LABS: ALT 34 U/L (8-44); AST 26 U/L (13-35); African American GFR (CKD) 84.4 (60.0-200.0); Albumin 4.1 g/dL (3.8-4.9); Albumin/Globulin Ratio 1.49 (1.60-3.17); Alkaline Phosphatase 145 U/L (41-126); BUN/Creat Ratio 18.42 Ratio (12.00-20.00); Blood Urea Nitrogen 15.4 mg/dL (9.0-27.0); Calcium 9.4 mg/dL (8.7-10.3); Chloride 104 mmol/L (96-109); Chol/HDL Ratio 3.54 Ratio; Globulin 2.8 g/dL (1.6-3.3); Glucose 85 mg/dL (70-110); LDL Cholesterol,Calculated 82.4 mg/dL (0.0-131.0); Non-African American GFR(CKD) 72.8 (60.0-200.0); Potassium 4.3 mmol/L (3.5-5.5); Sodium 140 mmol/L (135-145); Total Protein 6.9 g/dL (6.2-8.2)
== END | disposition home or self-care (01) ==
LOC: LABWHC1 09:29
PROVIDERS: ATTEND Internal Medicine Interventional Cardiology
DX: E78.2 Mixed hyperlipidemia (principal)
CPT/HCPCS: 36415; 80053; 80061

== ENCOUNTER → 2022-09-22 | Outpatient (CLI) | payer MEDICARE ==
[2022-09-22 14:47] LABS: Chol/HDL Ratio 3.16 Ratio; LDL Cholesterol,Calculated 78.6 mg/dL (0.0-131.0); VLDL Calculation 15.02 mg/dL (5.00-40.00)
== END | disposition home or self-care (01) ==
LOC: LABWHC1 10:26
PROVIDERS: ATTEND Internal Medicine Interventional Cardiology
DX: E78.2 Mixed hyperlipidemia (principal)
CPT/HCPCS: 36415; 80061

== ENCOUNTER → 2023-04-02 | Outpatient (CLI) | payer MEDICARE ==
[2023-04-02 16:09] LABS: BUN/Creat Ratio 14.78 Ratio (12.00-20.00); Blood Urea Nitrogen 13.3 mg/dL (9.0-27.0); Glucose 88 mg/dL (70-110); LDL Cholesterol,Calculated 66.1 mg/dL (0.0-131.0)
[2023-04-02 16:10] LABS: ALT 31 U/L (8-44); AST 24 U/L (13-35); Albumin/Globulin Ratio 1.43 Ratio (1.60-3.17); Alkaline Phosphatase 121 U/L (41-126); Calcium 9.7 mg/dL (8.7-10.3); Carbon Dioxide 22.9 mmol/L (21.6-31.8); Chloride 105 mmol/L (96-109); Globulin 2.8 d/dL (1.6-3.3); Potassium 4.6 mmol/L (3.5-5.5); Sodium 139 mmol/L (135-145); Total Bilirubin 0.8 mg/dL (0.3-1.2); Total Protein 6.8 d/dL (6.2-8.2)
== END | disposition home or self-care (01) ==
LOC: LABWHC1 09:43
PROVIDERS: ATTEND Nurse Practitioner Adult Health
DX: I10 Essential (primary) hypertension (principal); E78.2 Mixed hyperlipidemia
CPT/HCPCS: 36415; 80053; 80061

== ENCOUNTER → 2023-04-26 | Outpatient (CLI) | payer MEDICARE ==
--- NOTE | 2023-04-26 11:48 | MM ---
Reason for Exam: Screening (asymptomatic). Last screening mammogram was performed 12 month(s) ago. Patient History: Menarche at age 13. First Full-Term at age 28. Postmenopausal. Patient used Estrogen for 2 years. Hormonal Contraceptives, starting at age 30 for 10 years. Risk Values: Ursula 5 year model risk: 1.9%. NCI Lifetime model risk: 6.4%. Prior Study Comparison: 08/25/2019 Bilateral Screening Mammogram, [facility]. 04/22/2021 Bilateral Screening Mammogram, [facility]. 04/23/2022 Bilateral MG 3D screening mammo w/cad, [facility]. Tissue Density: The breast tissue is almost entirely fat. Findings: Analyzed By CAD. There is no suspicious group of microcalcifications or new suspicious mass in either breast. Overall Assessment: Negative, BI-RAD 1 Management: Screening Mammogram of both breasts in [address] [facility] will attempt to contact patient to return for supplemental views and ultrasound if indicated. Patient should continue monthly self-breast exams. A clinical breast exam by your physician is recommended on an annual basis. This exam should not preclude additional follow-up of suspicious palpable abnormalities. Note on Ursula scores and lifetime risk: 1. A Ursula score greater than 3% is considered moderate risk. If this is the case, consider specialist referral to assess eligibility for a risk reducing agent. 2. If overall lifetime risk for the development of breast cancer is 20% or higher, the patient may qualify for future screening with alternating mammogram and breast MRI. Electronically signed and approved by: Derek Mata DO
== END | disposition home or self-care (01) ==
LOC: RADMAMWWP 11:20
PROVIDERS: ATTEND Family Medicine
DX: Z12.31 Encounter for screening mammogram for malignant neoplasm of breast (principal); Z78.0 Asymptomatic menopausal state
CPT/HCPCS: 77063; 77067

== ENCOUNTER → 2023-07-06 | Outpatient (CLI) | payer MEDICARE ==
--- NOTE | 2023-07-06 08:50 | US ---
EXAMINATION TYPE: US gallbladder DATE OF EXAM: 07/06/2023 COMPARISON: Liver ultrasound 07/22/2015 CLINICAL INDICATION: Female, 68 years old with history of R10.11 RUQ pain; pain TECHNIQUE: Multiple sonographic images of the right upper quadrant are obtained. FINDINGS: EXAM MEASUREMENTS: Liver Length: 14 cm Gallbladder Wall: .3 cm CBD: .4 cm Right Kidney: 9.6 x 4.4 x 5.2 cm STATION MANAGER NOTES: Pancreas: Tail obscured by overlying bowel gas Liver: Increased attenuation Gallbladder: No stones seen Evidence for sonographic Hopkins's sign: No CBD: wnl Right Kidney: No hydronephrosis or masses seen Visualized portions of pancreas unremarkable. The tail is obscured by overlying bowel gas. Diffuse in creased attenuation of the liver. This limits evaluation for focal hepatic masses. No gross evidence of intrahepatic mass, cystic mass, or intrahepatic biliary ductal dilatation. No cholelithiasis, wall thickening, or pericholecystic fluid. Per electric deicer inspector, negative sonographic Hopkins sign. Common bile duct is within normal limits. Right kidney is unremarkable without evidence of solid mass, hydroneph rosis, or nephrolithiasis. IMPRESSION: 1. No acute process. 2. Hepatic steatosis.
== END | disposition home or self-care (01) ==
LOC: RADUSWWP 08:03
PROVIDERS: ATTEND Surgery Plastic and Reconstructive Surgery
DX: K76.0 Fatty (change of) liver, not elsewhere classified (principal)
CPT/HCPCS: 76705

== ENCOUNTER 2023-07-22 08:01 | Day surgery (SDC) | payer MEDICARE ==
--- NOTE | 2023-07-22 07:57 | P.GSHP ---
History of Present Illness H&P Date: 07/22/23 CHIEF COMPLAINT: Colon screen HISTORY OF PRESENT ILLNESS: The patient is a 68-year-old female who presents for colon screen. Lower endoscopy was offered for further evaluation and management. PAST MEDICAL HISTORY: Please see list. PAST SURGICAL HISTORY: Please see list. MEDICATIONS: Please see list. ALLERGIES: Please see list. SOCIAL HISTORY: No illicit drug use FAMILY HISTORY: No reports of Crohn disease or ulcerative colitis. REVIEW OF ORGAN SYSTEMS: CONSTITUTIONAL: No reports of fevers or chills. PHYSICAL EXAM: VITAL SIGNS: Stable GENERAL: Well-developed pleasant in no acute distress. HEENT: No scleral icterus. Extraocular movements grossly intact. Moist buccal mucosa. NECK: Supple without lymphadenopathy. CHEST: Unlabored respirations. Equal bilateral excursions. CARDIOVASCULAR: Regular rate and rhythm. Distal 2+ pulses. ABDOMEN: Soft, nontender, nondistended. MUSCULOSKELETAL: No clubbing, cyanosis, or edema. ASSESSMENT: 1. Colon screen. PLAN: 1. Recommend proceeding with a lower endoscopy Past Medical History Past Medical History: Coronary Artery Disease (CAD), Chest Pain / Angina, Hyperlipidemia, Hypertension, Myocardial Infarction ([place]) Additional Past Medical History / Comment(s): left knee arthritis Last Myocardial Infarction Date:: 2020 History of Any Multi-Drug Resistant Organisms: None Reported Past Surgical History: Section, Heart Catheterization With Stent, Tonsillectomy, Tubal Ligation Past Anesthesia/Blood Transfusion Reactions: No Reported Reaction Date of Last Stent Placement:: 04/16/2021 Smoking Status: Never smoker - Past Family History Father Family Medical History: Coronary Artery Disease (CAD), Myocardial Infarction ([place]) Additional Family Medical History / Comment(s): Father from [place] at age 52 Mother Family Medical History: Cancer Additional Family Medical History / Comment(s): Mother passed from cancer at age 65 Medications and Allergies Home Medications Medication Instructions Recorded Confirmed Type Aspirin 81 mg PO DAILY #30 chew 03/21/20 07/20/23 Rx Atorvastatin [Lipitor] 80 mg PO HS #30 tab 03/21/20 07/20/23 Rx Metoprolol Tartrate [Lopressor] 50 mg PO BID #60 tab 03/21/20 07/20/23 Rx Nitroglycerin Sl Tabs [Nitrostat] 0.4 mg SUBLINGUAL Q5M PRN #100 tab 03/21/20 07/20/23 Rx Spironolactone [Aldactone] 25 mg PO DAILY #30 tab 03/21/20 07/20/23 Rx Losartan Potassium 25 mg PO HS 07/20/23 07/20/23 History Allergies Allergy/AdvReac Type Severity Reaction Status Date / Time No Known Allergies Allergy Verified 07/20/23 10:03
[~2023-07-22 08:01] MED LIST: LACTATED RINGERS 1,000 ML IV SCH
[2023-07-22] MEDS ORDERED: LACTATED RINGERS 1,000 ML IV ONE (08:30)
[2023-07-22] MEDS ORDERED: PROPOFOL 10 MG/ML 20 ML VIAL IV ONE (09:05)
[2023-07-22 09:07] VITALS: TEMP 98.1
[2023-07-22 10:09] VITALS: BP 106/66; PULSE 66; RESP 18
--- NOTE | 2023-07-22 10:12 | P.PCN ---
Date of Procedure: 07/22/23 Description of Procedure: PREOPERATIVE DIAGNOSIS: Colonoscopy screening POSTOPERATIVE DIAGNOSIS: Tubular adenoma cecum Internal hemorrhoids, grade 2 OPERATION: Colonoscopy to the ileocecal valve and appendiceal orifice, cecum Colonoscopy with cold forceps biopsy with stool cultures SURGEON: Cailin Vail MD. ANESTHESIA: MAC. INDICATIONS: The patient is an 68-year-old female who for colonoscopy screening. Last colonoscopy over 5 years. Benefits and risks were described and informed consen t was obtained. DESCRIPTION OF PROCEDURE: The patient had undergone Sutab prep. The patient had been brought into the operating room and laid in the left lateral decubitus position. After adequate intravenous sedation, the rectum was examined with 2% lidocaine jelly. External hemorrhoids were encountered. The rectal tone was within normal limits. No lesions were palpated in the rectal vault. An Olympus colonoscope was advanced until the cecum, ileocecal valve and appendiceal orifice were clearly viewed. The prep was excellent. No sigmoid diverticulosis was encountered. Colonic polyps were found and removed. Stool cultures obtained for early colitis. Retroflexion of the scope demonstrated grade 2 internal hemorrhoids without active bleeding or inflammation. The colon was desufflated. The patient had tolerated the procedure well. Withdrawal time was over 6 minutes. FINDINGS: Aronchick preparation quality scale 1 (1-5) Internal hemorrhoids, grade 2 External hemorrhoids, grade 2. No arteriovenous malformations. No sigmoid diverticulosis Removal of 2 polyps: - Cold forceps biopsy at cecum, 8 mm villous adenoma School culture obtained for early colitis. RECOMMENDATIONS: Repeat colonoscopy in 3 years, 2025 Plan - Discharge Summary Discharge Rx Participant: No New Discharge Prescriptions: Continue Nitroglycerin Sl Tabs [Nitrostat] 0.4 mg SUBLINGUAL Q5M PRN #100 tab PRN Reason: Chest Pain Spironolactone [Aldactone] 25 mg PO DAILY #30 tab Aspirin 81 mg PO DAILY #30 chew Atorvastatin [Lipitor] 80 mg PO HS #30 tab Metoprolol Tartrate [Lopressor] 50 mg PO BID #60 tab Losartan Potassium 25 mg PO HS Discharge Medication List Aspirin 81 mg PO DAILY #30 chew 03/21/20 [Rx] Atorvastatin [Lipitor] 80 mg PO HS #30 tab 03/21/20 [Rx] Metoprolol Tartrate [Lopressor] 50 mg PO BID #60 tab 03/21/20 [Rx] Nitroglycerin Sl Tabs [Nitrostat] 0.4 mg SUBLINGUAL Q5M PRN #100 tab 03/21/20 [Rx] Spironolactone [Aldactone] 25 mg PO DAILY #30 tab 03/21/20 [Rx] Losartan Potassium 25 mg PO HS 07/20/23 [History] Follow up Appointment(s)/Referral(s): Cailin Vail MD [STAFF PHYSICIAN] - 08/10/23 11:00 am Patient Instructions/Handouts: *Surgery [facility] - (Anesthesia) Discharge Instructions Outpatient Surgery, Colorectal Polyps (GEN), Colonoscopy (DC) Activity/Diet/Wound Care/Special Instructions: Repeat colonoscopy 3 years, 2025 Discharge Disposition: HOME SELF-CARE
== END 2023-07-22 10:20 | disposition home or self-care (01) ==
LOC: ORWHC2ENDO 08:01
PROVIDERS: ATTEND Surgery Plastic and Reconstructive Surgery
DX: Z12.11 Encounter for screening for malignant neoplasm of colon (principal); D12.0 Benign neoplasm of cecum; K64.1 Second degree hemorrhoids; K64.8 Other hemorrhoids; I25.10 Atherosclerotic heart disease of native coronary artery without angina pectoris; I10 Essential (primary) hypertension; E78.5 Hyperlipidemia, unspecified; I25.2 Old myocardial infarction; Z98.890 Other specified postprocedural states; Z90.89 Acquired absence of other organs; Z95.1 Presence of aortocoronary bypass graft; Z98.51 Tubal ligation status; Z82.49 Family history of ischemic heart disease and other diseases of the circulatory system; Z79.82 Long term (current) use of aspirin; Z79.899 Other long term (current) drug therapy
CPT/HCPCS: 88305; 83993; 87045; 83630; 87046; 45380; J2704

== ENCOUNTER → 2023-09-14 | Outpatient (CLI) | payer MEDICARE ==
[2023-09-14 15:26] LABS: Chol/HDL Ratio 3.36 Ratio; LDL Cholesterol,Calculated 69.5 mg/dL (0.0-131.0)
[2023-09-14 15:41] LABS: ALT 26 U/L (8-44); AST 33 U/L (13-35)
== END | disposition home or self-care (01) ==
LOC: LABWHC1 09:22
PROVIDERS: ATTEND Internal Medicine Interventional Cardiology
DX: E78.2 Mixed hyperlipidemia (principal)
CPT/HCPCS: 36415; 80061; 84450; 84460

== ENCOUNTER 2024-02-10 04:14 | Observation (INO) | payer MEDICARE ==
[2024-02-10 04:49] LABS: Basophils # (A) 0.1 k/uL (0-0.2); Basophils % (A) 1 %; Eosinophils # (A) 0.2 k/uL (0-0.7); Eosinophils % (A) 1 %; HCT 46.1 % (34.0-46.0); HGB 14.8 gm/dL (11.4-16.0); Lymphocytes # (A) 2.6 k/uL (1.0-4.8); Lymphocytes % (A) 24 %; MCH 30.1 pg (25.0-35.0); MCHC 32.1 g/dL (31.0-37.0); MCV 93.8 fL (80.0-100.0); Mean Platelet Volume 8.3; Monocytes # (A) 0.5 k/uL (0-1.0); Monocytes % (A) 5 %; Neutrophils # (A) 7.3 k/uL (1.3-7.7); Neutrophils % (A) 67 %; Platelet Count 229 k/uL (150-450); RBC 4.91 m/uL (3.80-5.40); WBC 10.9 k/uL (3.8-10.6)
--- NOTE | 2024-02-10 04:52 | ED ---
Chest Pain HPI - General Chief Complaint: Chest Pain Stated Complaint: chest pain/pressure Time Seen by Provider: 02/10/24 04:20 Source: patient Mode of arrival: ambulatory Limitations: no limitations - History of Present Illness Initial Comments: 68-year-old female with past medical history of coronary artery disease status post 3 stents who presents emergency department reporting chest pain. States that she did have some pain earlier in the week. She took a couple of her nitros and it was resolved. 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 Dr. Akbar started her on Imdur. She states she has been taking this medication tonight the patient was awakened from her sleep with significant substernal chest pain radiating into her left neck. She did not take any nitro tonight. She did check her blood pressure and it was noted to be extremely high. By the time the patient got to the emergency department the pain had already subsided. She denies associated fevers, chills or cough. No nausea. Does admit to some diaphoresis. No other alleviating, precipitating or modifying factors - Related Data Home Medications Medication Instructions Recorded Confirmed Losartan Potassium 25 mg PO HS 07/20/23 02/10/24 Celecoxib [CeleBREX] 200 mg PO DAILY PRN 02/10/24 02/10/24 Isosorbide Mononitrate ER [Imdur] 30 mg PO DAILY 02/10/24 02/10/24 Previous Rx's Medication Instructions Recorded Aspirin 81 mg PO DAILY #30 chew 03/21/20 Atorvastatin [Lipitor] 80 mg PO HS #30 tab 03/21/20 Metoprolol Tartrate [Lopressor] 50 mg PO BID #60 tab 03/21/20 Nitroglycerin Sl Tabs [Nitrostat] 0.4 mg SUBLINGUAL Q5M PRN #100 tab 03/21/20 Spironolactone [Aldactone] 25 mg PO DAILY #30 tab 03/21/20 Allergies Allergy/AdvReac Type Severity Reaction Status Date / Time No Known Allergies Allergy Verified 02/10/24 04:19 Review of Systems ROS Statement: Those systems with pertinent positive or pertinent negative responses have been documented in the HPI. ROS Other: All systems not noted in ROS Statement are negative. Past Medical History Past Medical History: Myocardial Infarction ([place]) History of Any Multi-Drug Resistant Organisms: None Reported Past Surgical History: Section, Heart Catheterization With Stent, Tonsillectomy, Tubal Ligation Past Anesthesia/Blood Transfusion Reactions: No Reported Reaction Past Psychological History: No Psychological Hx Reported Smoking Status: Never smoker Past Alcohol Use History: None Reported Past Drug Use History: None Reported - Past Family History Father Family Medical History: Coronary Artery Disease (CAD), Myocardial Infarction ([place]) Additional Family Medical History / Comment(s): Father from [place] at age 52 Mother Family Medical History: Cancer Additional Family Medical History / Comment(s): Mother passed from cancer at age 65 General Exam Limitations: no limitations General appearance: alert, in no apparent distress Head exam: Present: atraumatic, normocephalic, normal inspection Eye exam: Present: normal appearance, PERRL, EOMI. Absent: scleral icterus, conjunctival injection, periorbital swelling ENT exam: Present: normal exam, mucous membranes moist Neck exam: Present: normal inspection. Absent: tenderness, meningismus, lymphadenopathy Respiratory exam: Present: normal lung sounds bilaterally. Absent: respiratory distress, wheezes, rales, rhonchi, stridor Cardiovascular Exam: Present: regular rate, normal rhythm, normal heart sounds. Absent: systolic murmur, diastolic murmur, rubs, gallop, clicks GI/Abdominal exam: Present: soft, normal bowel sounds. Absent: distended, t enderness, guarding, rebound, rigid Extremities exam: Present: normal inspection, full ROM, normal capillary refill. Absent: tenderness, pedal edema, joint swelling, calf tenderness Back exam: Present: normal inspection Neurological exam: Present: alert, oriented X3, CN II-XII intact Psychiatric exam: Present: normal affect, normal mood Skin exam: Present: warm, dry, intact, normal color. Absent: rash Course Vital Signs 02/10/24 02/10/24 02/10/24 04:17 05:44 06:05 Temperature 98.4 F Pulse Rate 82 85 73 Respiratory 18 14 14 Rate Blood Pressure 186/91 139/76 137/76 O2 Sat by Pulse 99 97 98 Oximetry Chest Pain MDM - MDM Was pt. sent in by a medical professional or institution (, PA, [facility], urgent care, hospital, or senior care...) When possible be specific @ -No Did you speak to anyone other than the patient for history (EMS, parent, family, police, friend...)? What history was obtained from this source @ -No Did you review nursing and triage notes (agree or disagree)? Why? @ -I reviewed and agree with nursing and triage notes Were old charts reviewed (outside hosp., previous admission, EMS record, old EKG, old radiological studies, urgent care reports/EKG's, senior care records)? Report findings @ -I reviewed patient's cardiac catheterization which was done in 2019 Differential Diagnosis (chest pain, altered mental status, abdominal pain women, abdominal pain men, vaginal bleeding, weakness, fever, dyspnea, syncope, headache, dizziness, GI bleed, back pain, seizure, CVA, palpatations, mental health, musculoskeletal)? @ -Differential Chest Pain: Stable Angina, Unstable Angina, STEMI, NSTEMI Aortic Dissection, Pneumothorax, Musculoskeletal, Esophageal Spasm GERD, Cholecystitis, Pancreatitis, Zoster, this is not meant to be an all-inclusive list. EKG interpreted by me (3pts min.). @ -Yes and demonstrates sinus rhythm with a rate of 78. MI interval 170. QRS 98. QTc of 418. No acute ST segment elevations or depressions Repeat EKG completed when patient has active chest pain. Done at 6:19 AM which demonstrates sinus rhythm with a rate of 72. MI interval 185. QRS 112. QTc of 414. Patient does have ST depression V2 which is new X-rays interpreted by me (1pt min.). @ -Yes and demonstrates no acute process CT interpreted by me (1pt min.). @ -None done U/S interpreted by me (1pt. min.). @ -None done What testing was considered but not performed or refused? (CT, X-rays, U/S, labs)? Why? @ -None What meds were considered but not given or refused? Why? @ -Pain medications were considered however patient refused that she states her pain was not severe at this time Did you discuss the management of the patient with other professionals (professionals i.e. , PA, [facility], lab, RT, psych nurse, bilingual social worker, divorce lawyer, teacher, community relations officer, case management manager)? Give summary @ -Spoke with Dr. Cisneros who agreed to admit the patient to his service Was smoking cessation discussed for >3mins.? @ -No Was critical care preformed (if so, how long)? @ -No Were there social determinants of health that impacted care today? How? (Homelessness, low income, unemployed, alcoholism, drug addiction, crouch sportation, low edu. Level, literacy, decrease access to med. care, [facility], rehab)? @ -No Was there de-escalation of care discussed even if they declined (Discuss DNR or withdrawal of care, Hospice)? DNR status @ -No What co-morbidities impacted this encounter? (DM, HTN, Smoking, COPD, CAD, Cancer, CVA, ARF, Chemo, Hep., AIDS, mental health diagnosis, sleep apnea, morbid obesity)? @ -Coronary artery disease with 3 stent placement Was patient admitted / discharged? Hospital course, mention meds given and route, prescriptions, significant lab abnormalities, going to OR and other pertinent info. @ -On arrival patient was seen and evaluated in room 9. Thorough history and physical exam was performed. Twelve-lead EKG is obtained. Patient placed on continuous pulse ox and cardiac monitoring. Laboratory studies are conducted. Troponin is negative. Due to patient's typical anginal symptoms I did recommend admission for which she was agreeable. Spoke with Dr. Cisneros who agreed to admit the patient Undiagnosed new problem with uncertain prognosis? @ -Yes Drug Therapy requiring intensive monitoring for toxicity (Heparin, Nitro, Insulin, Cardizem)? @ -No Were any procedures done? @ -No Diagnosis/symptom? @ -Acute chest pain, possible ACS, history of coronary artery disease Acute, or Chronic, or Acute on Chronic? @ -Acute Uncomplicated (without systemic symptoms) or Complicated (systemic symptoms)? @ -Complicated Side effects of treatment? @ -No Exacerbation, Progression, or Severe Exacerbation? @ -Yes as patient has possible ACS Poses a threat to life or bodily function? How? (Chest pain, [place], [place], pneumonia, PE, COPD, DKA, ARF, appy, cholecystitis, CVA, Diverticulitis, Homicidal, Suicidal, threat to staff... and all critical care pts) @ -No Disposition Clinical Impression: Chest pain Disposition: ADMITTED IP TO THIS HOSP Condition: Stable Is patient prescribed a controlled substance at d/c from ED?: No Referrals: Jimmie Cisneros MD [Primary Care Provider] - 1-2 days Time of Disposition: 06:24 Decision to Admit Reason: Admit from EC Decision Date: 02/10/24 Decision Time: 06:24
[2024-02-10 05:18] LABS: ALT 30 U/L (4-34); AST 34 U/L (14-36); African American GFR (CKD) >90 (>60 ml/min/1.73 sqM); Albumin 4.3 g/dL (3.5-5.0); Alkaline Phosphatase 122 U/L (38-126); Anion Gap 11 mmol/L; Blood Urea Nitrogen 16 mg/dL (7-17); Calcium 9.4 mg/dL (8.4-10.2); Carbon Dioxide 20 mmol/L (22-30); Chloride 109 mmol/L (98-107); Glucose 93 mg/dL (74-99); Lipase 242 U/L (23-300); Magnesium 1.9 mg/dL (1.6-2.3); Non-African American GFR(CKD) >90 (>60 ml/min/1.73 sqM); Potassium 4.9 mmol/L (3.5-5.1); Sodium 140 mmol/L (137-145); Total Protein 7.9 g/dL (6.3-8.2)
[2024-02-10] MEDS ORDERED: NALOXONE 0.4 MG/ML 1 ML VIAL IV PRN (06:26)
[2024-02-10] MEDS ORDERED: NITROGLYCERIN SL TABS 0.4 MG TAB SUBLINGUAL PRN ×2 (06:27→08:00)
[2024-02-10] MEDS ORDERED: MELOXICAM 7.5 MG TAB PO PRN (06:27)
[2024-02-10] MEDS: ASPIRIN 81 MG PO STA (06:30)
[2024-02-10] MEDS: NITROGLYCERIN OINT 1 INCH/GM PACKET TOPICAL STA (06:31)
[2024-02-10] MEDS ORDERED: HEPARIN SODIUM,PORCINE (1 ML) 2,500 UNIT in SODIUM CHLORIDE 0.9% 250 ML IRRIGATION PRN (07:00)
[2024-02-10] MEDS ORDERED: HEPARIN SODIUM,PORCINE 10,000 UNIT in SODIUM CHLORIDE 0.9% 1,000 ML IRRIGATION PRN (07:00)
--- NOTE | 2024-02-10 07:24 | XR ---
EXAMINATION TYPE: XR chest 2V DATE OF EXAM: 02/10/2024 COMPARISON: 03/18/2020 HISTORY: 68-year-old female with chest pain TECHNIQUE: PA and lateral views FINDINGS: The cardiomediastinal silhouette, aorta, and pulmonary vasculature are within normal limits. Mild hyp erinflation. Lungs and pleural spaces are clear. IMPRESSION: Mild hyperinflation may relate to a depth of inspiration or underlying emphysema. No acute process se en.
[2024-02-10 07:33] LABS: Partial Thromboplastin Time 22.7 sec (22.0-30.0); Prothrombin Time 10.7 sec (10.0-12.5)
[2024-02-10] MEDS ORDERED: ALPRAZolam 0.5 MG TAB PO PRN (08:00)
[2024-02-10] MEDS ORDERED: ALPRAZolam 0.25 MG TAB PO PRN (08:00)
[2024-02-10] MEDS: ATORVASTATIN 80 MG TAB PO STA (08:35)
[2024-02-10] MEDS: ASPIRIN 325 MG TAB PO STA (08:35)
[2024-02-10] MEDS: IV FLUID CONTINUATION 1,000 ML IV ONE (08:51)
[2024-02-10] MEDS ORDERED: fentaNYL (PF) 50 MCG/ML 2 ML AMP ONE (08:59)
[2024-02-10] MEDS ORDERED: HEPARIN SODIUM 1,000 UN/ML (10ML VL) ONE (08:59)
[2024-02-10] MEDS: fentaNYL (PF) 50 MCG/ML 2 ML AMP IVP ONE (09:18)
[2024-02-10] MEDS: LIDOCAINE 1% INJ 10MG/ML (5 ML VIAL-PF) SQ ONE (09:24)
[2024-02-10] MEDS: VERAPAMIL SYRINGE (5 MG/10 ML) INTRAARTER ONE (09:24)
[2024-02-10] MEDS: HEPARIN SODIUM 1,000 UN/ML (10ML VL) IVP ONE (09:27)
[2024-02-10] MEDS ORDERED: RX INFO: IV CONTRAST WAS GIVEN 1 EACH MISC MISCELLANE PRN (09:41)
--- NOTE | 2024-02-10 09:47 | P.CARDCATH ---
Date of Procedure: 02/10/24 Description of Procedure: Cardiac Catheterization: The patient is a 68-year-old female with a known history of CAD, post stenting of the proximal LAD in February 2020 in the setting of a myocardial infarction, history of hypertension and hyperlipidemia who presented with symptoms of chest discomfort and no evidence of myocardial infarction. Recommendations were made regarding cardiac catheterization, the risks and the complications were discussed with the patient who is in full understanding and agreement. 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 Using Xylocaine Anesthesia and modified Seldinger technique, a 6-Italian sheath was introduced in the right radial artery . Subsequently, selective coronary angiography was performed using a 5-Italian 3.5 bend Anabel catheter. Multiple views of the coronary artery including hemiaxial views were obtained. The right Anabel catheter was used to cross the aortic valve and LVEDP was calculated. Following that, catheter and sheath were removed. Hemostasis was obtained with deployment of vascular band . There was no immediate complication. Patient was returned to room in stable condition. Of note, the patient received a total of 5000 units of intravenous heparin as well as intra-arterial verapamil. Findings: Left main: This is a large size vessel, bifurcating into LAD and left circumflex, left main has no obstructive disease LAD: This is a large size vessel, reaching to the apex, giving rise to a large diagonal branch in the midsegment. The stented segment in the proximal and mid LAD is patent with a 20% in-stent restenosis. The rest of the vessel has no high-grade stenosis. Left circumflex: This is a large dominant vessel giving rise to a large obtuse marginal branch. The left circumflex after the takeoff of the first obtuse marginal branch has a 30 to 40% plaque, the rest of the vessel has no high-grade stenosis RCA: This is a small nondominant vessel that has no evidence of high-grade stenosis Left Ventriculogram: Not performed Hemodynamics: There was no gradient across the aortic valve, LVEDP was 15-20 mmHg Conclusion: 1. Patent stent in the LAD with mild in-stent restenosis 2. Mild obstructive disease in the mid left circumflex 3. No significant obstructive disease in the nondominant right 4. Left dominance Recommendations: I have recommended to continue medical therapy with the aggressive coronary risks modifications been initiated. The findings and the recommendations were discussed with the patient and the family and they were in full understanding and agreement. Duration of sedation is 14 minutes.
[2024-02-10] MEDS: METOPROLOL TARTRATE 50 MG TAB PO SCH (09:57)
[2024-02-10] MEDS: SPIRONOLACTONE 25 MG TAB PO SCH (09:57)
[2024-02-10] MEDS: SODIUM CHLORIDE 0.9% 1,000 ML IV SCH (09:58)
[2024-02-10] MEDS: ISOSORBIDE MONONITRATE ER 30 MG TAB.ER.24H PO SCH (10:02)
--- NOTE | 2024-02-10 10:08 | P.CRDCN ---
History of Present Illness Consult date: 02/10/24 Consult reason: chest pain History of present illness: History of present illness: This is a 68-year-old female patient of Dr. Akbar with past medical history of coronary artery disease with previous stent, ischemic cardiomyopathy with EF of 35%, hypertension, hyperlipidemia. We have been asked to evaluate the patient for chest pain. Patient states that she had chest pain started yesterday that woke her up at 3 in the morning. She states she took her new medication which was isosorbide yesterday for the first time. She denied having any difficulty in breathing. No palpitations no shortness of breath no edema. No PND no cough no fever no wheezing. No nausea or vomiting. No blood in her urine or stool. She denies having any abdominal pain. She states pain is somewhat similar to that when she had a previous stent but to a lesser degree. Discussed option of undergoing cardiac catheterization and patient is agreement to move forward. EKG sinus rhythm with no acute ST-T wave changes. Chest x-ray: Mild hyperinflation may relate to depth of inspiration or underlying emphysema. No acute process. WBC 10.9, hemoglobin 14.8. Sodium 140, potassium 4.9, creatinine 0.68. Troponin negative x 2. Magnesium 1.9. Home cardiac medications: Aspirin 81 mg daily, atorvastatin 80 mg at bedtime, Imdur 30 mg daily, losartan 25 mg daily, Lopressor 50 mg twice daily, Nitrostat 0.4 mg as needed, spironolactone 25 mg daily. Cardiac catheterization performed on 02/10/2024 reveals patent stent to the LAD with mild in-stent restenosis, mild obstructive disease in the mid left circumflex. No significant obstructive disease in the nondominant right. Left dominance. Recommendations for medical management. Echocardiogram performed 06/02/2022 in the office revealed EF of 50 to 55%. Grade 1 diastolic dysfunction. Mild mitral digitation, mild tricuspid regurgitation. Review Of Systems: At the time of my exam: CONSTITUTIONAL: Denies fever or chills. HEENT: Denies blurred vision, vision changes, or eye pain. Denies hemoptysis CARDIOVASCULAR: Denies chest pain. Denies orthopnea. Denies PND. Denies palpitations RESPIRATORY: Denies shortness of breath. GASTROINTESTINAL: Denies abdominal pain. Denies nausea or vomiting. HEMATOLOGIC: Denies bleeding disorders. GENITOURINARY: Denies any blood in urine. SKIN: Denies pruitis. Denies rash. Physical examination: Gen: This is a 68-year-old female in no acute distress VS: reviewed, blood pressure 144/82, heart rate 76, pulse ox 98% on room air. HEENT: Head is atraumatic, normocephalic. Pupils equal, round. Sclerae is anicteric. NECK: Supple. No JVD. LUNGS: Clear to auscultation. No wheezes or rhonchi. No intercostal retractions. HEART: Regular rate and rhythm. 2/6 systolic ejection murmur at the base. ABDOMEN: Soft No tenderness. EXTREMITIES: No pedal edema. No calf tenderness. NEUROLOGICAL: Patient is awake, alert and oriented x3. Assessment: Atypical chest pain, acute coronary syndrome ruled out by cardiac catheterization History of coronary artery disease with previous stenting of the LAD Cardiomyopathy with a EF of 35% Hypertension Hyperlipidemia Plan: Resume patient's home cardiac medications Discontinue Imdur Patient is cleared for discharge from cardiology May follow-up in the office in 1 to 2 weeks. Thank you kindly for this consultation. Nurse practitioner note has been reviewed, I agree with documented findings and plan of care. Patient was seen and examined. Past Medical History Past Medical History: Myocardial Infarction ([place]) History of Any Multi-Drug Resistant Organisms: None Reported Past Surgical History: Section, Heart Catheterization With Stent, Tonsillectomy, Tubal Ligation Past Anesthesia/Blood Transfusion Reactions: No Reported Reaction Past Psychological History: No Psychological Hx Reported Smoking Status: Never smoker Past Alcohol Use History: None Reported Past Drug Use History: None Reported - Past Family History Father Family Medical History: Coronary Artery Disease (CAD), Myocardial Infarction ([place]) Additional Family Medical History / Comment(s): Father from [place] at age 52 Mother Family Medical History: Cancer Additional Family Medical History / Comment(s): Mother passed from cancer at age 65 Medications and Allergies Home Medications Medication Instructions Recorded Confirmed Type Aspirin 81 mg PO DAILY #30 chew 03/21/20 02/10/24 Rx Atorvastatin [Lipitor] 80 mg PO HS #30 tab 03/21/20 02/10/24 Rx Metoprolol Tartrate [Lopressor] 50 mg PO BID #60 tab 03/21/20 02/10/24 Rx Nitroglycerin Sl Tabs [Nitrostat] 0.4 mg SUBLINGUAL Q5M PRN #100 tab 03/21/20 02/10/24 Rx Spironolactone [Aldactone] 25 mg PO DAILY #30 tab 03/21/20 02/10/24 Rx Celecoxib [CeleBREX] 200 mg PO DAILY PRN 02/10/24 02/10/24 History Isosorbide Mononitrate ER [Imdur] 30 mg PO DAILY 02/10/24 02/10/24 History Losartan [Cozaar] 25 mg PO DAILY 02/10/24 02/10/24 History Allergies Allergy/AdvReac Type Severity Reaction Status Date / Time tomato AdvReac Heartburn/Upset Verified 02/10/24 06:48 Stomach Physical Exam Vitals: Vital Signs Temp Pulse Resp BP Pulse Ox 02/10/24 07:23 97.9 F 79 18 130/69 99 02/10/24 06:05 73 14 137/76 98 02/10/24 05:44 85 14 139/76 97 02/10/24 04:17 98.4 F 82 18 186/91 99 Intake and Output 02/09/24 02/10/24 02/10/24 22:59 06:59 14:59 Other: Weight 94.801 kg Results 02/10/24 04:35 02/10/24 04:35 Cardiac Enzymes 02/10/24 02/10/24 Range/Units 04:35 04:35 AST 34 (14-36) U/L Troponin I <0.012 (0.000-0.034) ng/mL Coagulation 02/10/24 Range/Units 06:53 PT 10.7 (10.0-12.5) sec APTT 22.7 (22.0-30.0) sec CBC 02/10/24 Range/Units 04:35 WBC 10.9 H (3.8-10.6) k/uL RBC 4.91 (3.80-5.40) m/uL Hgb 14.8 (11.4-16.0) gm/dL Hct 46.1 H (34.0-46.0) % Plt Count 229 (150-450) k/uL Comprehensive Metabolic Panel 02/10/24 Range/Units 04:35 Sodium 140 (137-145) mmol/L Potassium 4.9 (3.5-5.1) mmol/L Chloride 109 H (98-107) mmol/L Carbon Dioxide 20 L (22-30) mmol/L BUN 16 (7-17) mg/dL Creatinine 0.68 (0.52-1.04) mg/dL Glucose 93 (74-99) mg/dL Calcium 9.4 (8.4-10.2) mg/dL AST 34 (14-36) U/L ALT 30 (4-34) U/L Alkaline Phosphatase 122 (38-126) U/L Total Protein 7.9 (6.3-8.2) g/dL Albumin 4.3 (3.5-5.0) g/dL Current Medications Generic Name Dose Route Start Last Admin Trade Name Freq PRN Reason Stop Dose Admin Aspirin 81 mg 02/10/24 09:00 Aspirin 81 Mg PO DAILY [facility] Atorvastatin Calcium 80 mg 02/10/24 21:00 Atorvastatin 80 Mg Tab PO HS [facility] Isosorbide Mononitrate 30 mg 02/10/24 09:00 Isosorbide Mononitrate Er 30 Mg Tab.Er.24h PO DAILY [facility] Losartan Potassium 25 mg 02/10/24 21:00 Losartan 25 Mg Tab PO HS [facility] Meloxicam 7.5 mg 02/10/24 06:27 Meloxicam 7.5 Mg Tab PO DAILY PRN Pain Metoprolol Tartrate 50 mg 02/10/24 09:00 Metoprolol Tartrate 50 Mg Tab PO BID [facility] Naloxone HCl 0.2 mg 02/10/24 06:26 Naloxone 0.4 Mg/Ml 1 Ml Vial IV Q2M PRN Opioid Reversal Nitroglycerin 0.4 mg 02/10/24 06:27 Nitroglycerin Sl Tabs 0.4 Mg Tab SUBLINGUAL Q5M PRN Chest Pain Spironolactone 25 mg 02/10/24 09:00 Spironolactone 25 Mg Tab PO DAILY [facility] Intake and Output 02/09/24 02/10/24 02/10/24 22:59 06:59 14:59 Other: Weight 94.801 kg 02/10/24 04:35 02/10/24 04:35
[2024-02-10 12:10] VITALS: RESP 16; TEMP 97.9
[2024-02-10 14:10] VITALS: BP 120/64; PULSE 73
[2024-02-10] MEDS ORDERED: LOSARTAN 25 MG TAB PO SCH (21:00)
[2024-02-10] MEDS ORDERED: ATORVASTATIN 80 MG TAB PO SCH (21:00)
[2024-02-11] MEDS ORDERED: ASPIRIN 81 MG PO SCH (09:00)
--- NOTE | 2024-02-11 16:32 | P.HPIM ---
History of Present Illness H&P Date: 02/10/24 Chief Complaint: Chest pain History and Physical and Discharge Summary: This is a 68-year-old female with past medical history significant for CAD, history of DC, stent, ischemic cardiomyopathy with EF 35%, hypertension, hyperlipidemia, morbid obesity, BMI 37 other medical issues. Presented to the ER with complaints of chest pain that woke her up early in the morning, proceeded to take her newly prescribed Imdur for the first time. Developed chest pain that felt similar to her prior DC /stent. Denies shortness of breath, palpitations, no cough, congestion or fevers. No nausea vomiting or diarrhea. No abdominal pain. Troponin is negative x 3, EKG sinus rhythm, chest x-ray reported mild hyperinflation, nonacute. Afebrile, normal WBC, hemoglobin 14.8, electrolytes and renal function stable. Evaluated by cardiology, recommended cardiac catheterization. Completed cardiac catheterization this morning reporting patent stent to the LAD with mild in-stent restenosis, mild obstructive disease in the mid left circumflex, no significant obstructive disease in the nondominant right. Left dominance. Medical management recommended. Imdur has been discontinued and patient has been cleared by cardiology for discharge. Currently denies chest pain, palpitations or shortness of breath. Denies lightheadedness dizziness or focal deficits. Review of Systems All systems: negative Constitutional: Denies chills, Denies fever Eyes: denies blurred vision, denies pain Ears, nose, mouth and throat: Denies headache, Denies sore throat Cardiovascular: Reports chest pain, denies shortness of breath Respiratory: Denies cough Gastrointestinal: Denies abdominal pain, Denies diarrhea, Denies nausea, Denies vomiting Genitourinary: Denies dysuria, Denies hematuria Musculoskeletal: Denies myalgias Integumentary: Denies pruritus, Denies rash Neurological: Denies numbness, Denies weakness Psychiatric: Denies anxiety, Denies depression Endocrine: Denies fatigue, Denies weight change Past Medical History Past Medical History: Myocardial Infarction (DC) Last Myocardial Infarction Date:: 03/18/2021 History of Any Multi-Drug Resistant Organisms: None Reported Past Surgical History: Section, Heart Catheterization With Stent, Tonsillectomy, Tubal Ligation Past Anesthesia/Blood Transfusion Reactions: No Reported Reaction Date of Last Stent Placement:: 03/18/2021 Past Psychological History: No Psychological Hx Reported Smoking Status: Never smoker Past Alcohol Use History: None Reported Past Drug Use History: None Reported - Past Family History Father Family Medical History: Coronary Artery Disease (CAD), Myocardial Infarction (DC) Additional Family Medical History / Comment(s): Father from [place] at age 52 Mother Family Medical History: Cancer Additional Family Medical History / Comment(s): Mother passed from cancer at age 65 Medications and Allergies Home Medications Medication Instructions Recorded Confirmed Type Aspirin 81 mg PO DAILY #30 chew 03/21/20 02/10/24 Rx Atorvastatin [Lipitor] 80 mg PO HS #30 tab 03/21/20 02/10/24 Rx Metoprolol Tartrate [Lopressor] 50 mg PO BID #60 tab 03/21/20 02/10/24 Rx Nitroglycerin Sl Tabs [Nitrostat] 0.4 mg SUBLINGUAL Q5M PRN #100 tab 03/21/20 02/10/24 Rx Spironolactone [Aldactone] 25 mg PO DAILY #30 tab 03/21/20 02/10/24 Rx Celecoxib [CeleBREX] 200 mg PO DAILY PRN 02/10/24 02/10/24 History Losartan [Cozaar] 25 mg PO DAILY 02/10/24 02/10/24 History Allergies Allergy/AdvReac Type Severity Reaction Status Date / Time tomato AdvReac Heartburn/Upset Verified 02/10/24 06:48 Stomach Physical Exam Vitals: Vital Signs Temp Pulse Pulse Pulse Resp BP BP 02/10/24 13:48 73 16 120/64 02/10/24 12:48 69 16 117/67 02/10/24 11:48 64 16 116/67 02/10/24 11:18 67 16 141/78 02/10/24 10:48 75 16 146/83 02/10/24 10:33 72 16 130/70 02/10/24 10:18 72 16 145/77 02/10/24 10:03 83 16 156/80 02/10/24 09:50 97.9 F 78 16 02/10/24 08:13 97.8 F 76 17 02/10/24 07:23 97.9 F 79 18 130/69 02/10/24 06:05 73 14 137/76 02/10/24 05:44 85 14 139/76 02/10/24 04:17 98.4 F 82 18 186/91 BP Pulse Ox 02/10/24 13:48 99 02/10/24 12:48 99 02/10/24 11:48 97 02/10/24 11:18 100 02/10/24 10:48 100 02/10/24 10:33 97 02/10/24 10:18 99 02/10/24 10:03 99 02/10/24 09:50 152/78 100 02/10/24 08:13 144/82 98 02/10/24 07:23 99 02/10/24 06:05 98 02/10/24 05:44 97 02/10/24 04:17 99 Intake and Output 02/10/24 02/10/24 02/10/24 06:59 14:59 22:59 Intake Total 340 Balance 340 Intake: IV 100 Oral 240 Other: # Voids 2 Weight 94.801 kg General: well nourished, well developed, NAD. Vitals reviewed Eyes: PERRL, EOMI, conjunctiva normal HENT: normocephalic, mucus membranes moist Neck: supple, no JVD Lungs: normal respiratory effort, no wheezes or rales CV: Regular rate and rhythm, systolic murmur. Peripheral pulses 2+ Abdomen: soft, nondistended, no organomegaly Lymph: no cervical or axillary LAD Skin: warm and dry. EXT: No pedal edema, no calf tenderness Neuro: A&Ox3, normal mood and affect Results CBC & Chem 7: 02/10/24 04:35 02/10/24 04:35 Labs: Abnormal Lab Results - Last 24 Hours (Table) 02/10/24 02/10/24 Range/Units 04:35 04:35 WBC 10.9 H (3.8-10.6) k/uL Hct 46.1 H (34.0-46.0) % Chloride 109 H (98-107) mmol/L Carbon Dioxide 20 L (22-30) mmol/L Thrombosis Risk Factor Assmnt - Choose All That Apply Each Factor Represents 1 point: Obesity (BMI >25) Each Risk Factor Represents 2 Points: Age 61-74 years Thrombosis Risk Factor Assessment Total Risk Factor Score: 3 Thrombosis Risk Factor Assessment Level: Moderate Risk Assessment and Plan Assessment: Chest pain, ACS ruled out, status post cardiac catheterization as mentioned above, continue medical therapy with aggressive coronary risk modifications. CAD, history of DC, stent, Ischemic cardiomyopathy, EF 35% Hypertension Hyperlipidemia Morbid obesity, BMI 37 Plan: Continue on current medication regimen ,monitoring and symptomatic treatment. Patient has been cleared by cardiology for discharge, recommending discontinuing Imdur. Patient will be discharged home today in a stable condition with guarded prognosis. Discharge Medication List Aspirin 81 mg PO DAILY #30 chew 03/21/20 [Rx] Atorvastatin [Lipitor] 80 mg PO HS #30 tab 03/21/20 [Rx] Metoprolol Tartrate [Lopressor] 50 mg PO BID #60 tab 03/21/20 [Rx] Nitroglycerin Sl Tabs [Nitrostat] 0.4 mg SUBLINGUAL Q5M PRN #100 tab 03/21/20 [Rx] Spironolactone [Aldactone] 25 mg PO DAILY #30 tab 03/21/20 [Rx] Celecoxib [CeleBREX] 200 mg PO DAILY PRN 02/10/24 [History] Losartan [Cozaar] 25 mg PO DAILY 02/10/24 [History] The impression and plan of care has been dictated as directed. : I performed a history and examination of this patient, discussed the same with the dictator. I agree with the dictator's note ,documented as a scribe. Any additional findings or plans will be noted.
== END 2024-02-10 14:47 | disposition home or self-care (01) ==
LOC: EC 04:14 → 6NMEDSUR 06:26
PROVIDERS: ADMIT Family Medicine; ATTEND Family Medicine
DX: R07.89 Other chest pain (principal); T82.855A Stenosis of coronary artery stent, initial encounter; I25.119 Atherosclerotic heart disease of native coronary artery with unspecified angina pectoris; I25.5 Ischemic cardiomyopathy; I10 Essential (primary) hypertension; E78.5 Hyperlipidemia, unspecified; I08.1 Rheumatic disorders of both mitral and tricuspid valves; R07.2 Precordial pain; M54.2 Cervicalgia; R61 Generalized hyperhidrosis; I25.2 Old myocardial infarction; E66.01 Morbid (severe) obesity due to excess calories; Z68.37 Body mass index [BMI] 37.0-37.9, adult; Y83.1 Surgical operation with implant of artificial internal device as the cause of abnormal reaction of the patient, or of later complication, without mention of misadventure at the time of the procedure; Z79.82 Long term (current) use of aspirin; Z79.1 Long term (current) use of non-steroidal anti-inflammatories (NSAID); Z79.899 Other long term (current) drug therapy; Z91.018 Allergy to other foods; Z95.5 Presence of coronary angioplasty implant and graft
CPT/HCPCS: 99285; 36415; 93005; 93458; 80053; 83690; 83735; 84484; 85025; 85610; 85730; 71046; G0378; C1769 ×2; C1894; J2001; J3010; J1644

== ENCOUNTER → 2024-05-04 | Outpatient (CLI) | payer MEDICARE ==
--- NOTE | 2024-05-25 14:55 | MM ---
Reason for Exam: Screening (asymptomatic). Last mammogram was performed 1 year(s) and 1 month(s) ago. Patient History: Menarche at age 13. First Full-Term at age 28. Postmenopausal. Patient used Estrogen for 2 years. Hormonal Contraceptives, starting at age 30 for 10 years. Risk Values: Ursula 5 year model risk: 1.9%. NCI Lifetime model risk: 6.2%. Prior Study Comparison: 04/22/2021 Bilateral Screening Mammogram, [facility]. 04/23/2022 Bilateral MG 3D screening mammo w/cad, [facility]. 04/26/2023 Bilateral MG 3D screening mammo w/cad, [facility]. Tissue Density: The breasts are almost entirely fatty. Findings: Analyzed By CAD. Right breast: There is no suspicious group of microcalcifications or new suspicious mass. Left breast: There is no suspicious group of microcalcifications or new suspicious mass. Overall Assessment: Negative, BI-RAD 1 Management: Screening Mammogram of both breasts in [address] [facility] will attempt to contact patient to return for supplemental views and ultrasound if indicated. Patient should continue monthly self-breast exams. A clinical breast exam by your physician is recommended on an annual basis. This exam should not preclude additional follow-up of suspicious palpable abnormalities. Note on Ursula scores and lifetime risk: 1. A Ursula score greater than 3% is considered moderate risk. If this is the case, consider specialist referral to assess eligibility for a risk reducing agent. 2. If overall lifetime risk for the development of breast cancer is 20% or higher, the patient may qualify for future screening with alternating mammogram and breast MRI. Electronically signed and approved by: Derek Mata DO
== END | disposition home or self-care (01) ==
LOC: RADMAMWWP 12:00
PROVIDERS: ATTEND Family Medicine
DX: Z12.31 Encounter for screening mammogram for malignant neoplasm of breast
CPT/HCPCS: 77063; 77067

== ENCOUNTER → 2024-08-08 | Outpatient (CLI) | payer MEDICARE ==
[2024-08-08 16:21] LABS: ALT 23 U/L (8-44); AST 22 U/L (13-35); Chol/HDL Ratio 3.62 Ratio; LDL Cholesterol,Calculated 83.3 mg/dL (0.0-131.0)
== END | disposition home or self-care (01) ==
LOC: LABWHC1 10:24
PROVIDERS: ATTEND Internal Medicine Interventional Cardiology
DX: E78.2 Mixed hyperlipidemia (principal)
CPT/HCPCS: 36415; 80061; 84450; 84460

== ENCOUNTER 2024-12-27 04:57 | Observation (INO) | payer MEDICARE ==
[2024-12-27 05:33] LABS: Basophils % (A) 0 %; Eosinophils # (A) 0.1 k/uL (0-0.7); Eosinophils % (A) 2 %; HCT 40.7 % (34.0-46.0); HGB 13.4 gm/dL (11.4-16.0); Lymphocytes # (A) 2.6 k/uL (1.0-4.8); Lymphocytes % (A) 35 %; MCH 29.9 pg (25.0-35.0); MCHC 32.9 g/dL (31.0-37.0); MCV 90.8 fL (80.0-100.0); Mean Platelet Volume 7.2; Monocytes # (A) 0.4 k/uL (0-1.0); Monocytes % (A) 5 %; Neutrophils # (A) 4.1 k/uL (1.3-7.7); Neutrophils % (A) 55 %; Platelet Count 231 k/uL (150-450); RBC 4.49 m/uL (3.80-5.40); RDW 12.9 % (11.5-15.5); WBC 7.5 k/uL (3.8-10.6)
[2024-12-27 05:47] LABS: Partial Thromboplastin Time 22.1 sec (22.0-30.0)
[2024-12-27] MEDS: SODIUM CHLORIDE 0.9% 500 ML 500 ML IV STA (05:52)
[2024-12-27] MEDS: ASPIRIN 81 MG PO STA (05:52)
[2024-12-27 05:56] LABS: ALT 24 U/L (4-34); AST 30 U/L (14-36); African American GFR (CKD) >90 (>60 ml/min/1.73 sqM); Albumin 3.8 g/dL (3.5-5.0); Alkaline Phosphatase 136 U/L (38-126); Anion Gap 8 mmol/L; Blood Urea Nitrogen 15 mg/dL (7-17); Calcium 9.1 mg/dL (8.4-10.2); Carbon Dioxide 22 mmol/L (22-30); Chloride 107 mmol/L (98-107); Glucose 104 mg/dL (74-99); Lipase 155 U/L (23-300); Magnesium 1.9 mg/dL (1.6-2.3); Non-African American GFR(CKD) 85 (>60 ml/min/1.73 sqM); Sodium 137 mmol/L (137-145); Total Bilirubin 0.9 mg/dL (0.2-1.3); Total Protein 6.8 g/dL (6.3-8.2)
[2024-12-27 06:05] LABS: NT-Pro-B-Type Natriuretic Pept 85 pg/mL
--- NOTE | 2024-12-27 07:11 | XR ---
EXAMINATION TYPE: XR chest 2V DATE OF EXAM: 12/27/2024 6:28 AM COMPARISON: 02/10/2024 CLINICAL INDICATION: Female, 69 years old with history of Chest Pain, , TECHNIQUE: PA and lateral views FINDINGS: Heart upper limits of normal in size. Mild hyperinflation. Pulmonary vasculature within normal limits . There is some patchy opacity in the medial right base. No pleural effusion. IMPRESSION: Some patchy medial right basilar atelectasis versus early infiltrate. Correlate with symptoms. [facility], , 12/27/2024 7:09 AM
--- NOTE | 2024-12-27 07:40 | ED ---
General Adult HPI - General Chief complaint: Chest Pain Stated complaint: Chest pain Time Seen by Provider: 12/27/24 05:08 Source: patient Mode of arrival: ambulatory Limitations: no limitations - History of Present Illness Initial comments: Patient is a 69 y/o female PMH CAD, presenting today for chest pressure. States that this morning she woke up feeling like there was pressure in the middle of her chest as she did with her last heart attack. She took 2 SL nitroglycerin which resolved the pain. She currently denies chest pain, shortness of breath, fevers, chills, cough, hemoptysis, abdominal pain, nausea, vomiting, diaphoresis. - Related Data Home Medications Medication Instructions Recorded Confirmed Losartan [Cozaar] 25 mg PO DAILY 02/10/24 12/27/24 Ezetimibe [Zetia] 10 mg PO DAILY 12/27/24 12/27/24 Previous Rx's Medication Instructions Recorded Aspirin 81 mg PO DAILY #30 chew 03/21/20 Atorvastatin [Lipitor] 80 mg PO HS #30 tab 03/21/20 Metoprolol Tartrate [Lopressor] 50 mg PO BID #60 tab 03/21/20 Nitroglycerin Sl Tabs [Nitrostat] 0.4 mg SUBLINGUAL Q5M PRN #100 tab 03/21/20 Spironolactone [Aldactone] 25 mg PO DAILY #30 tab 03/21/20 Acetaminophen Tab [Tylenol] 650 mg PO Q4HR PRN tab 12/27/24 Allergies Allergy/AdvReac Type Severity Reaction Status Date / Time tomato AdvReac Heartburn/Upset Verified 12/27/24 08:10 Stomach Review of Systems ROS Statement: Those systems with pertinent positive or pertinent negative responses have been documented in the HPI. ROS Other: All systems not noted in ROS Statement are negative. Past Medical History Past Medical History: Myocardial Infarction ([place]) Last Myocardial Infarction Date:: 03/18/2021 History of Any Multi-Drug Resistant Organisms: None Reported Past Surgical History: Section, Heart Catheterization With Stent, Tonsillectomy, Tubal Ligation Past Anesthesia/Blood Transfusion Reactions: No Reported Reaction Date of Last Stent Placement:: 03/18/2021 Past Psychological History: No Psychological Hx Reported Smoking Status: Never smoker Past Alcohol Use History: None Reported Past Drug Use History: None Reported - Past Family History Father Family Medical History: Coronary Artery Disease (CAD), Myocardial Infarction (CA) Additional Family Medical History / Comment(s): Father from [place] at age 52 Mother Family Medical History: Cancer Additional Family Medical History / Comment(s): Mother passed from cancer at age 65 General Exam - General Exam Comments Initial Comments: PE: CONSTITUTIONAL: No apparent distress, well appearing SKIN: Warm, dry, no jaundice, hives or petechiae EYES: Pupils are equally round, extraocular movements intact without nystagmus, clear conjunctiva, non-icteric sclera HENT: Normocephalic, atraumatic, moist mucus membranes, oropharynx clear without exudates NECK: , Full range of motion, normal appearance PULMONARY: Clear to auscultation without wheezes, rhonchi, or rales, normal excursion, no accessory muscle use and no stridor CARDIOVASCULAR: Regular rate, rhythm, normal S1 and S2. No appreciated murmurs, rubs or gallops. Strong radial pulses with intact distal perfusion. No lower extremity edema GASTROINTESTINAL: Soft, active bowel sounds throughout, non-tender, non- distended, no palpable masses, no rebound or guarding. No hepatosplenomegaly GENITOURINARY: MUSCULOSKELETAL: Extremities have no gross deformity, no edema, redness, or swelling. No calf swelling NEUROLOGIC:_a/o x 3, GCS 15, normal mentation and speech. Moves all extremities x 4 without motor or sensory deficit PSYCHIATRIC:_normal mood and affect, thought process is clear and linear Limitations: no limitations Course Vital Signs 12/27/24 12/27/24 12/27/24 05:00 07:19 11:24 Temperature 97.8 F Pulse Rate 69 65 57 L Respiratory 18 18 16 Rate Blood Pressure 127/75 123/66 125/49 O2 Sat by Pulse 97 99 98 Oximetry 12/27/24 12/27/24 12/27/24 12:40 15:07 17:05 Temperature 98.2 F Pulse Rate 78 68 68 Respiratory 18 18 18 Rate Blood Pressure 158/88 132/66 133/70 O2 Sat by Pulse 97 96 98 Oximetry EKG Findings - EKG Comments: EKG Findings:: Sinus rhythm, rate 60 bpm [place] interval 189 ms QT/QTc 403/403 ms, normal axis, no ST elevations or depressions small Q-wave lead V1 V2 Medical Decision Making - Medical Decision Making Was pt. sent in by a medical professional or institution (MIKE Rose, INTERNAL SALESPERSON, urgent care, hospital, or alf...) When possible be specific @ -No Did you speak to anyone other than the patient for history (EMS, parent, family, police, friend...)? What history was obtained from this source @ -No Differential Diagnosis (chest pain, altered mental status, abdominal pain women, abdominal pain men, vaginal bleeding, weakness, fever, dyspnea, syncope, headache, dizziness, GI bleed, back pain, seizure, CVA, palpatations, mental health, musculoskeletal)? @ Differential Chest Pain: Stable Angina, Unstable Angina, STEMI, NSTEMI Aortic Dissection, pericarditis, pleurisy, chostochondirits, Pneumothorax, Musculoskeletal, Esophageal Spasm GERD, Cholecystitis, Pancreatitis, Zoster, this is not meant to be an all-incl usive list. EKG interpreted by me (3pts min.). @ -As above X-rays interpreted by me (1pt min.). @I personally reviewed chest x-ray, I see no evidence of cardiomegaly, consolidations or pleural effusions CT interpreted by me (1pt min.). @ -None done U/S interpreted by me (1pt. min.). @ -None done What testing was considered but not performed or refused? (CT, X-rays, U/S, labs)? Why? @ -None What meds were considered but not given or refused? Why? @ -None Did you discuss the management of the patient with other professionals (professionals i.e. MIKE Rose, INTERNAL SALESPERSON, lab, RT, psych nurse, social work job titles, construction worker, teacher, preventive medicine officer, piano case maker)? Give summary @ -No Was smoking cessation discussed for >3mins.? @ -No Was critical care preformed (if so, how long)? @ -No Were there social determinants of health that impacted care today? How? (Homelessness, low income, unemployed, alcoholism, drug addiction, transportation, low edu. Level, literacy, decrease access to med. care, correction, rehab)? @ -No Was there de-escalation of care discussed even if they declined (Discuss DNR or withdrawal of care, Hospice)? @ -No What co-morbidities impacted this encounter? (DM, HTN, Smoking, COPD, CAD, Cance r, CVA, ARF, Chemo, Hep., AIDS, mental health diagnosis, sleep apnea, morbid obesity)? @CAD Was patient admitted / discharged? Hospital course, mention meds given and route, prescriptions, significant lab abnormalities, going to OR and other pertinent info. @Admission-this is a 69-year-old female presenting today for chest pressure that felt similar to prior heart attack. Vital signs are stable on arrival and pain is not resolved after sublingual nitroglycerin. Discussed with patient plan for chest pain evaluation and anticipate admission due to high risk history and risk factors. Patient is agreeable plan of care. 324 mg aspirin ordered. Labs and imaging reviewed. Grossly within normal limits. Abnormal values not concerning for acute pathology related to presenting complaint. Updated patient to findings. Case was discussed with CHERRY Wild, kindly accepted patient for admission. Undiagnosed new problem with uncertain prognosis? @ -No Drug Therapy requiring intensive monitoring for toxicity (Heparin, Nitro, Insulin, Cardizem)? @ -No Were any procedures done? @ -No Diagnosis/symptom? Unstable angina Acute, or Chronic, or Acute on Chronic? acute Uncomplicated (without systemic symptoms) or Complicated (systemic symptoms)? @ complicated Side effects of treatment? @ -No Exacerbation, Progression, or Severe Exacerbation? @ -No Poses a threat to life or bodily function? How? (Chest pain, [place], CA, pneumonia, PE, COPD, DKA, ARF, appy, cholecystitis, CVA, Diverticulitis, Homicidal, Suicidal, threat to staff... and all critical care pts) Yes - Lab Data Result diagrams: 12/27/24 05:25 12/27/24 05:25 Lab Results 12/27/24 12/27/24 12/27/24 Range/Units 05:25 05:25 05:25 WBC 7.5 (3.8-10.6) k/uL RBC 4.49 (3.80-5.40) m/uL Hgb 13.4 (11.4-16.0) gm/dL Hct 40.7 (34.0-46.0) % MCV 90.8 (80.0-100.0) fL MCH 29.9 (25.0-35.0) pg MCHC 32.9 (31.0-37.0) g/dL RDW 12.9 (11.5-15.5) % Plt Count 231 (150-450) k/uL MPV 7.2 Neutrophils % 55 % Lymphocytes % 35 % Monocytes % 5 % Eosinophils % 2 % Basophils % 0 % Neutrophils # 4.1 (1.3-7.7) k/uL Lymphocytes # 2.6 (1.0-4.8) k/uL Monocytes # 0.4 (0-1.0) k/uL Eosinophils # 0.1 (0-0.7) k/uL Basophils # 0.0 (0-0.2) k/uL PT 11.0 (10.0-12.5) sec INR 1.0 (<1.2) APTT 22.1 (22.0-30.0) sec Sodium 137 (137-145) mmol/L Potassium 4.0 (3.5-5.1) mmol/L Chloride 107 (98-107) mmol/L Carbon Dioxide 22 (22-30) mmol/L Anion Gap 8 mmol/L BUN 15 (7-17) mg/dL Creatinine 0.73 (0.52-1.04) mg/dL Est GFR (CKD-EPI)AfAm >90 (>60 ml/min/1.73 sqM) Est GFR (CKD-EPI)NonAf 85 (>60 ml/min/1.73 sqM) Glucose 104 H (74-99) mg/dL Calcium 9.1 (8.4-10.2) mg/dL Magnesium 1.9 (1.6-2.3) mg/dL Total Bilirubin 0.9 (0.2-1.3) mg/dL AST 30 (14-36) U/L ALT 24 (4-34) U/L Alkaline Phosphatase 136 H (38-126) U/L Troponin I (0.000-0.034) ng/mL NT-Pro-B Natriuret Pep 85 pg/mL Total Protein 6.8 (6.3-8.2) g/dL Albumin 3.8 (3.5-5.0) g/dL Lipase 155 (23-300) U/L 12/27/24 Range/Units 05:25 WBC (3.8-10.6) k/uL RBC (3.80-5.40) m/uL Hgb (11.4-16.0) gm/dL Hct (34.0-46.0) % MCV (80.0-100.0) fL MCH (25.0-35.0) pg MCHC (31.0-37.0) g/dL RDW (11.5-15.5) % Plt Count (150-450) k/uL MPV Neutrophils % % Lymphocytes % % Monocytes % % Eosinophils % % Basophils % % Neutrophils # (1.3-7.7) k/uL Lymphocytes # (1.0-4.8) k/uL Monocytes # (0-1.0) k/uL Eosinophils # (0-0.7) k/uL Basophils # (0-0.2) k/uL PT (10.0-12.5) sec INR (<1.2) APTT (22.0-30.0) sec Sodium (137-145) mmol/L Potassium (3.5-5.1) mmol/L Chloride (98-107) mmol/L Carbon Dioxide (22-30) mmol/L Anion Gap mmol/L BUN (7-17) mg/dL Creatinine (0.52-1.04) mg/dL Est GFR (CKD-EPI)AfAm (>60 ml/min/1.73 sqM) Est GFR (CKD-EPI)NonAf (>60 ml/min/1.73 sqM) Glucose (74-99) mg/dL Calcium (8.4-10.2) mg/dL Magnesium (1.6-2.3) mg/dL Total Bilirubin (0.2-1.3) mg/dL AST (14-36) U/L ALT (4-34) U/L Alkaline Phosphatase (38-126) U/L Troponin I <0.012 (0.000-0.034) ng/mL NT-Pro-B Natriuret Pep pg/mL Total Protein (6.3-8.2) g/dL Albumin (3.5-5.0) g/dL Lipase (23-300) U/L Disposition Clinical Impression: Unstable angina Disposition: [facility]MITT[facility] Condition: Good
[2024-12-27] MEDS ORDERED: NITROGLYCERIN SL TABS 0.4 MG TAB SUBLINGUAL PRN (08:01)
[2024-12-27] MEDS ORDERED: ALPRAZolam 0.25 MG TAB PO PRN (08:01)
[2024-12-27] MEDS ORDERED: MORPHINE SULFATE 2 MG/ML SYRINGE IVP PRN (08:01)
[2024-12-27] MEDS ORDERED: ACETAMINOPHEN TAB 325 MG TAB PO PRN (08:01)
[2024-12-27] MEDS: ASPIRIN 81 MG PO SCH (08:29)
[2024-12-27] MEDS: LOSARTAN 25 MG TAB PO SCH (08:34)
[2024-12-27] MEDS: SPIRONOLACTONE 25 MG TAB PO SCH (08:34)
[2024-12-27] MEDS: EZETIMIBE 10 MG TAB PO SCH (08:34)
[2024-12-27] MEDS: METOPROLOL TARTRATE 50 MG TAB PO SCH (08:34)
[2024-12-27 12:40] VITALS: RESP 18
[2024-12-27 15:07] VITALS: PULSE 68
[2024-12-27 15:07] LABS: Influenza A Not Detected (Not Detectd); Influenza B Not Detected (Not Detectd); RSV Not Detected (Not Detectd)
[2024-12-27] MEDS: HEPARIN SODIUM,PORCINE 5,000 UNIT/ML 1 ML VIAL SQ SCH (15:11)
[2024-12-27 17:06] VITALS: BP 133/70; TEMP 98.2
[2024-12-27] MEDS ORDERED: ATORVASTATIN 80 MG TAB PO SCH (21:00)
--- NOTE | 2024-12-27 21:19 | HP ---
HISTORY AND PHYSICAL This is a combined history and physical and discharge summary. CHIEF COMPLAINT: Chest pain. HISTORY OF PRESENT ILLNESS: This is a 69-year-old woman with a past medical history of multiple medical problems, was admitted with some chest pain. The patient took 2 nitros with some relief and the patient came to [facility] and admitted for further evaluation and treatment. The troponins are negative. EKG did not show any acute abnormality. The patient is keen on going home today. Cardiology evaluation pending at this time. PAST MEDICAL HISTORY: Reviewed include myocardial infarction, CAD, stent. HOME MEDICATIONS: Reviewed include Nitrostat and rest of medications and rest of doses are reviewed. ALLERGIES: Tomato. FAMILY HISTORY: History of CAD, myocardial infarction. SOCIAL HISTORY: No history of smoking or alcohol. REVIEW OF SYSTEMS: Fourteen-point review of systems is negative except as mentioned earlier. PHYSICAL EXAMINATION: VITAL SIGNS: Pulse is 57, blood pressure 125/90, respirations 16. HEENT: Conjunctivae normal. NECK: No JVD. CARDIOVASCULAR: S1, S2. RESPIRATIONS: Breath sounds diminished at the bases. ABDOMEN: Soft, nontender. LEGS: No edema. NERVOUS SYSTEM: Nonfocal. LABORATORY DATA: Reviewed. Troponin normal. EKG shows nonspecific ST-T changes and chest x-ray reported some right basal atelectasis. ASSESSMENT: 1. Chest pain, possible unstable angina. 2. Possible right basal atelectasis. 3. History of coronary artery disease stent. 4. History of tonsillectomy. RECOMMENDATIONS AND DISCUSSION: This is a 69-year-old woman, who presented with multiple medical issues. I would recommend to continue the current medications. Myocardial infarction ruled out. We will follow with Cardiology. The patient might require further evaluation including stress test. Cardiology cleared the patient, may be able to go home and recommend close followup with primary physician in the outpatient setting. Incentive spirometry and also the patient does not have any respiratory symptoms at this time. I would recommend to closely follow up with the respiratory symptoms and follow up with Dr. Cisneros in the outpatient setting. See medication reconciliation sheet for list of medications. Stable, but overall prognosis guarded. Once again, the patient is extremely keen on going home at this time. Recommend close followup in the outpatient setting with Cardiology and Primary Physician. I would recommend D-dimer and as well as testing also. MMODL / IJN: [id number] / MARINA
--- NOTE | 2024-12-29 10:10 | P.DS ---
Providers Date of admission: 12/27/24 08:03 Expected date of discharge: 12/27/24 Attending physician: Xochilt Mckeon Consults: 12/27/24 08:01 Consult Physician Urgent Consulting Provider: Julio Akbar Consult Reason/Comments: Unstable angina Do you want consulting provider notified?: Yes, Notify in am Primary care physician: Jimmie Cisneros MD Hospital Course: Final diagnosis Chest pain, possible unstable angina, ACS ruled out with negative troponins Possible right basal atelectasis History of coronary artery disease with previous stenting History of tonsillectomy Obesity with a BMI 37.2 GI prophylaxis DVT prophylaxis Full code Discharge disposition Patient is being discharged in a stable condition with guarded prognosis to home and close outpatient follow-up with basket person Dr. Akbar this week. Patient will follow-up with Dr. Cisneros in the outpatient setting upon discharge. Patient is to continue with current medications and again close outpatient foll ow-up with cardiology as scheduled. Total time taken is greater than 35 minutes. Hospital course This is a 69-year-old female who was recently admitted with chest pain initially at home that had been radiating up the arm and back and reports to taking 2 nitro before relief was had. Made family aware and they prompted her to come to the ER for further evaluation. Patient was placed on telemetry monitoring and underwent serial troponins which were negative and patient is chest pain-free. Discussed with cardiology and patient will be following up with her basket person Dr. Akbar this week as patient is adamant and extremely keen on going home today. Patient reports she has no further chest pain, denies shortness of breath or palpitations and again would like to go home. Patient instructed to call 911 or visit the nearest ER if having any further chest pain or symptoms. Patient verbalized understanding. Currently no reports of chest pain, shortness of breath, or palpitations. Patient is afebrile. No reports of nausea or vomiting and patient is tolerating diet. Patient will be discharged home today. Guarded prognosis. Physical exam: Gen: This is a 69-year-old female who is awake, alert oriented x 3, well- developed, elderly appearing, obese HEENT: Head is atraumatic, normocephalic. Pupils equal, round. Sclerae is anicteric. NECK: Supple. No JVD. No lymphadenopathy. No thyromegaly. LUNGS: Diminished breath sounds bilaterally otherwise clear to auscultation. No wheezes or rhonchi. No intercostal retractions. HEART: S1, S2 are muffled ABDOMEN: Soft. Obese. Bowel sounds are present. No masses. No tenderness. EXTREMITIES: No pedal edema. No calf tenderness. NEUROLOGICAL: Patient is awake, alert and oriented x3. Cranial nerves 2 through 12 are grossly intact. Please refer to medication reconciliation sheet for a list of medications. The impression and plan of care has been dictated by Torri Aguero, Nurse Practitioner as directed. Dr. Mike MD I have performed a history and examination and MDM of this patient, discussed the same with the dictator, and agree with the dictator's assessment and plan as written ,documented as a scribe. Based on total visit time, I have performed more than 50% of the visit. Patient Condition at Discharge: Good Plan - Discharge Summary New Discharge Prescriptions: New Acetaminophen Tab [Tylenol] 650 mg PO Q4HR PRN tab PRN Reason: Pain Continue Nitroglycerin Sl Tabs [Nitrostat] 0.4 mg SUBLINGUAL Q5M PRN #100 tab PRN Reason: Chest Pain Spironolactone [Aldactone] 25 mg PO DAILY #30 tab Aspirin 81 mg PO DAILY #30 chew Atorvastatin [Lipitor] 80 mg PO HS #30 tab Metoprolol Tartrate [Lopressor] 50 mg PO BID #60 tab Losartan [Cozaar] 25 mg PO DAILY Ezetimibe [Zetia] 10 mg PO DAILY Discharge Medication List Aspirin 81 mg PO DAILY #30 chew 03/21/20 [Rx] Atorvastatin [Lipitor] 80 mg PO HS #30 tab 03/21/20 [Rx] Metoprolol Tartrate [Lopressor] 50 mg PO BID #60 tab 03/21/20 [Rx] Nitroglycerin Sl Tabs [Nitrostat] 0.4 mg SUBLINGUAL Q5M PRN #100 tab 03/21/20 [Rx] Spironolactone [Aldactone] 25 mg PO DAILY #30 tab 03/21/20 [Rx] Losartan [Cozaar] 25 mg PO DAILY 02/10/24 [History] Acetaminophen Tab [Tylenol] 650 mg PO Q4HR PRN tab 12/27/24 [Rx] Ezetimibe [Zetia] 10 mg PO DAILY 12/27/24 [History] Follow up Appointment(s)/Referral(s): Jimmie Cisneros MD [Primary Care Provider] - 1-2 days Julio Akbar MD [STAFF PHYSICIAN] - 1-2 Days (Please call cardiology office in the morning to schedule an appointment) Activity/Diet/Wound Care/Special Instructions: Activity limited until follow-up Follow-up with primary care provider on discharge Contact cardiology office and schedule an appointment this week with Dr. Akbar If having any increasing chest pain or any other symptoms call 911 or local ER Continue taking medications as prescribed Discharge Disposition: HOME SELF-CARE
== END 2024-12-27 17:05 | disposition home or self-care (01) ==
LOC: EC 04:57 → 6NMEDSUR 08:03
PROVIDERS: ADMIT Hospitalist; ATTEND Hospitalist
DX: R07.89 Other chest pain (principal); I25.10 Atherosclerotic heart disease of native coronary artery without angina pectoris; E66.9 Obesity, unspecified; Z68.37 Body mass index [BMI] 37.0-37.9, adult; I25.2 Old myocardial infarction; Z79.82 Long term (current) use of aspirin; Z79.899 Other long term (current) drug therapy; Z91.018 Allergy to other foods; Z95.5 Presence of coronary angioplasty implant and graft; Z98.890 Other specified postprocedural states
CPT/HCPCS: 96360; 96361; 99285; 36415; 93005; 85379; 83880; 80053; 83690; 83735; 84484; 85025; 85610; 85730; 87636; 71046; G0378

== ENCOUNTER → 2025-01-16 | Outpatient (CLI) | payer MEDICARE ==
[2025-01-16 14:43] LABS: HGB 14.8 g/dL (12.0-15.0); MCH 30.3 pg (27.0-32.0); MCHC 32.9 g/dL (32.0-37.0); Mean Platelet Volume 10.8 FL (9.5-12.2); NRBC Per 100 WBC 0 X 10*3/uL (0.00-0.01); Platelet Count 231 X 10*3/uL (140-440); RBC 4.89 X 10*6/uL (4.10-5.20); RDW 13.1 % (11.5-14.5); WBC 6.02 X 10*3/uL (4.50-10.00)
[2025-01-16 15:14] LABS: ALT 25 U/L (8-44); AST 21 U/L (13-35); Albumin 3.9 g/dL (3.8-4.9); Albumin/Globulin Ratio 1.39 Ratio (1.60-3.17); Alkaline Phosphatase 148 U/L (41-126); Blood Urea Nitrogen 15.2 mg/dL (9.0-27.0); Calcium 9.3 mg/dL (8.7-10.3); Carbon Dioxide 21.2 mmol/L (21.6-31.8); Chloride 106 mmol/L (96-109); Chol/HDL Ratio 2.81 Ratio; Globulin 2.8 g/dL (1.6-3.3); Glucose 96 mg/dL (70-110); LDL Cholesterol,Calculated 50.2 mg/dL (0.0-131.0); Potassium 4.3 mmol/L (3.5-5.5); Sodium 140 mmol/L (135-145); Total Bilirubin 0.5 mg/dL (0.3-1.2); Total Protein 6.7 g/dL (6.2-8.2)
== END | disposition home or self-care (01) ==
LOC: LABWHC1 08:46
PROVIDERS: ATTEND Internal Medicine Interventional Cardiology
DX: I50.32 Chronic diastolic (congestive) heart failure (principal)
CPT/HCPCS: 36415; 80053; 80061; 84443; 85027